=== PATIENT | male | born 1970 | race Caucasian/White ===

== ENCOUNTER 2016-11-18 20:20 | Emergency (ER) | payer MEDICAID ==
[2016-06-12 20:28] VITALS: BMI 20.9
[~2016-11-18 20:20] MED LIST: FLORINEF 0.1 M0.1 MG PO; HYDROCODON-ACE1 EAC7 PO; IMITREX50 MG PO; LUNESTA3 MG PO; NORCO 10/325 TA1 TA1 PO; PHENERGAN25 M1 PO; PREDNISONE5 MG PO; PRINIVIL20 MG PO; SYNTHROID100 MCG PO; SYNTHROID75 MCG PO; TYLENOL 8 HOUR650 MG; ZOFRAN ODT4 MG/UDTAB PO
[2016-11-18 21:15] LABS: APPEARANCE CLEAR (CLEAR); BILIRUBIN NEGATIVE (NEGATIVE); COLOR STRAW (YELLOW); GLUCOSE NEGATIVE (NEGATIVE); KETONE NEGATIVE (NEGATIVE); LEUKOCYTE ESTERASE NEGATIVE (NEGATIVE); NITRITE NEGATIVE (NEGATIVE); PROTEIN NEGATIVE (NEGATIVE); UROBILINOGEN NORMAL (NORMAL)
[2016-11-18 21:26] LABS: BASOPHILS 0.2 % (0.0-2.0); EOSINOPHILS 0.3 % (0-7); HEMATOCRIT 40.9 % (42.0-54.0); HEMOGLOBIN 14.8 g/dL (13.5-17.5); IMMATURE GRANULOCYTES 0.7 % (0-5); MCH 34.2 pg (26.0-34.0); MCHC 36.2 g/dL (31.0-37.0); MCV 94.5 fL (80.0-100.0); MEAN PLATELET VOLUME 11.1 fL (7.4-10.4); MONOCYTES 7.3 % (2-11); NEUTROPHILS 78.5 % (40-80); PLATELET COUNT 234 10x3/uL (130-400); RBC 4.33 10x6/uL (4.20-6.10); RDW 13.1 % (11.5-14.5); WBC 12.8 10x3/uL (4.8-10.8)
[2016-11-18 21:38] LABS: ALBUMIN 4.7 g/dL (3.4-5.0); ANION GAP 12.3 mmol/L (8-16); BILIRUBIN - TOTAL 0.72 mg/dL (0.2-1.3); CALCIUM 9.6 mg/dL (8.5-10.1); CARBON DIOXIDE 30.8 mmol/L (21.0-32.0); CREATININE - SERUM 1.3 mg/dL (0.6-1.3); POTASSIUM - SERUM 4.1 mmol/L (3.5-5.1); PROTEIN - SERUM 8.3 g/dL (6.4-8.2)
== END 2016-11-18 23:45 | disposition home or self-care (01) ==
LOC: D.ER 20:20
PROVIDERS: Emergency Medicine
DX: N28.9 Disorder of kidney and ureter, unspecified (principal); K21.9 Gastro-esophageal reflux disease without esophagitis; E87.6 Hypokalemia; F17.200 Nicotine dependence, unspecified, uncomplicated

== ENCOUNTER 2016-12-21 06:34 | Outpatient (CLI) | payer MEDICAID ==
[~2016-12-21] VITALS: Ht 182.9 cm; Wt 65.9 kg
--- NOTE | ~2016-12-21 | HEMODYNAMI ---
PATIENT:DILLON LOPEZ MEDICAL RECORD: [id number] : 68 LOCATION:[facility] ADMISSION DATE: 12/21/16 Generatedon:12/21/20168:04 Patient name: DILLON LOPEZ Patient #: [id number] SSN: : 1970 Date of study: 12/21/2016 Page: Of Hemodynamic Procedure Report Patient Data Patient Demographics Procedure consent was obtained First Name: DILLON Gender: Male Last Name: JESSICA : 1970 [facility] Initial: NILO Age: 46 year(s) Patient #: [id number] Race: Additional ID: [id number] Contact details Address: [address] State: [place] City: [place] Zip code: [address] Past Medical History Allergies Allergen Reaction Date Comments Reported Other allergy 12/21/2016 CLONIDINE Admission Admission Data Admission Date: 12/21/2016 Admission Time: 6:34 Lab Results Lab Result Date: 12/21/2016 Lab Result Time: 0:00 Biochemistry Name Units Result Min Max Creatinine mg/dl 1.4 --(----)*- 0.6 1.3 CBC Name Units Result Min Max Hemoglobin g/dl 14.5 --(*---)-- 13.5 17.5 Procedure Procedure Types Cath Procedure Diagnostic Procedure [facility] w/Coronaries PCI Procedure Coronary Stent Initial Miscellaneous Procedures Moderate Sedation up to 30 minutes Procedure Description Procedure Date Procedure Date: 12/21/2016 Procedure Start Time: 7:41 Procedure End Time: 8:04 Procedure Staff Name Function Tawana Cobian RT Scrub Nahed Dahl RN Nurse William Arzate RT Monitor Milan Canela RN Lab Asst Jordon Rodriguez MD Performing Physician Procedure Data Cath Procedure Fluoroscopy Diagnostic fluoroscopy Total fluoroscopy Time: 4.2 time: 4.2 min min Diagnostic fluoroscopy Total fluoroscopy dose: 506 dose: 506 mGy mGy Contrast Material Contrast Material Type Amount (ml) Isovue 300 96 Entry Location Entry Primary Successful Side Size Upsize Upsize Entry Closure [place] ccessful Closure Location (Fr) 1 (Fr) 2 (Fr) Remarks Device Remarks Radial Right 6 Fr Mechanical artery Short Compression Estimated blood loss: 10 ml Diagnostic catheters Device Type Used For End Catheter Placement Cordis RBL-A catheter (NO LV Angiography CHARGE) Cordis RBL-A catheter (NO Left Coronary CHARGE) Angiography Cordis RBL-A catheter (NO Right Coronary CHARGE) Angiography Procedure Complications No complications Procedure Medications Medication Administration Route Dosage Oxygen NC 2 l/min Lidocaine 2% added to field 20 Heparin Flush Bag added to field 2 bags (1000units/500ml NS) 0.9% NaCl I.V. 100 ml/hr Versed I.V. 2 mg Fentanyl I.V. 100 mcg Versed I.V. 2 mg Fentanyl I.V. 100 mcg Radial Cocktail I.A. 1 syringe (Verapomil 2mg/Nitro 400mcg/Heparin 1500units) Versed I.V. 2 mg Fentanyl I.V. 100 mcg Versed I.V. 1 mg Fentanyl I.V. 50 mcg Heparin Bolus I.V. 6500 units Plavix P.O. 600 mg Hemodynamics Rest Heart Rate: 55 (bpm) Pressure Samples Time Site Value (mmHg) Purpose Heart Use Rate(bpm) 7:44 LV 116/1,11 EDP 59 7:45 AO 90/58(71) Pullback 65 7:45 LV 115/-2,6 Pullback 65 Gradients Valve Time Site 1 Site 2 Mean SEP/DFP Peak To Heart Use (mmHg) (sec/min) Peak Rate (mmHg) (bpm) Aortic 7:45 LV AO 16 19 25 65 115/-2,6 90/58(71) Calculations Valve P-P Mean Valve Index Valve Source Name Gradient Area Flow (cm2) Aortic 25 16 25 16 Snapshots Pre Cath Intra NCS Post Cath Vital Signs Time Heart Resp SPO2 etCO2 QC9oncb NIBP (mmHg) Rhythm Pain Sedation Rate (ipm) (%) (mmHg) (mmHg) Status Level (bpm) 7:29:57 61 17 98 0 0 160/103(147) NSR 0 (11) 10(A) , No pain 7:34:26 60 18 97 0 0 137/64(115) NSR 0 (11) 10(A) , No pain 7:38:33 56 17 95 0 0 141/95(107) NSR 0 (11) 10(A) , No pain 7:42:43 58 16 96 0 0 135/102(121) NSR 0 (11) 10(A) , No pain 7:46:57 63 18 95 0 0 123/74(111) NSR 0 (11) 9(A) , No pain 7:51:05 71 16 95 0 0 114/76(106) NSR 0 (11) 9(A) , No pain 7:55:07 71 16 94 0 0 129/86(114) NSR 0 (11) 9(A) , No pain 7:59:15 68 18 94 0 0 128/82(118) NSR 0 (11) 10(A) , No pain 8:03:25 72 17 95 0 0 124/77(110) NSR 0 (11) 10(A) , No pain Medications Time Medication Route Dose Verified Delivered Reason Notes Effectiveness by by 7:28:13 Oxygen NC 2 l/min Jordon Buffie used for Michael Dahl RN procedure 7:28:21 Lidocaine 2% added 20ml Jordon Jordon for local to vial Michael Rodriguez MD anesthetic field 7:28:29 Heparin Flush added 2 bags Jordon Jordon used for Bag to Michael Rodriguez MD procedure (1000units/500ml field NS) 7:28:37 0.9% NaCl I.V. 100 Jordon Buffie Per physician ml/hr Michael Dahl RN 7:35:35 Versed I.V. 2 mg Buffie Buffie for sedation Nabila Dahl RN 7:35:41 Fentanyl I.V. 100 mcg Buffie Buffie for sedation Nabila Dahl RN 7:40:27 Versed I.V. 2 mg Jordon Buffie for sedation Michael Dahl RN 7:40:31 Fentanyl I.V. 100 mcg Jordon Buffie for sedation Michael Dahl RN 7:43:58 Radial Cocktail I.A. 1 Jordon Jordon for (Verapomil syringe Michael Rodriguez MD vasodilation 2mg/Nitro 400mcg/Heparin 1500units) 7:45:18 Versed I.V. 2 mg Jordon Buffie for sedation Michael Dahl RN 7:45:22 Fentanyl I.V. 100 mcg Jordon Buffie for sedation Michael Dahl RN 7:50:29 Versed I.V. 1 mg Jordon Nahed for sedation Michael Dahl RN 7:50:34 Fentanyl I.V. 50 mcg Jordon Dockery for sedation Michael Dahl RN 7:52:05 Heparin Bolus I.V. 6500 Jordon Dockery for verif ied units Michael Dahl RN anticoagulation with dr rodriguez 8:02:36 Plavix P.O. 600 mg Jordonlarry Dockery for Michael Dahl RN antiplatelet therapy Procedure Log Time Note 7:08:28 Milan Canela RN sent for patient. Start room use. 7:08:30 Time tracking: Regular hours 7:08:36 Plan of Care:Hemodynamics will remain stable., Cardiac rhythm will remain stable., Comfort level will be maintained., Respiratory function will remain adequate., Patient/ family verbilizes understanding of procedure., Procedure tolerated without complication., Recovers from procedure without complications.. 7:09:17 Diagnostic Cath status Elective 7:17:30 Patient received from Pre/Post Procedure Room to [facility] Alert and oriented. Tansferred to table in Supine position. 7:17:31 Warm blankets applied, and abdoulaye hugger turned on for patient comfort. 7:17:32 Correct patient and procedure confirmed by team. 7:17:34 Signed procedure consent form obtained from patient. 7:17:35 ECG and BP/O2 sat monitors applied to patient. 7:17:37 Full Disclosure recording started 7:28:13 Oxygen 2 l/min NC was administered by Nahed Dahl RN; used for procedure; 7:28:21 Lidocaine 2% 20ml vial added to field was administered by Jordon Rodriguez MD; for local anesthetic; 7:28:29 Heparin Flush Bag (1000units/500ml NS) 2 bags added to field was administered by Jordon Rodriguez MD; used for procedure; 7:28:37 0.9% NaCl 100 ml/hr I.V. was administered by Nahed Dahl RN; Per physician; 7:28:46 Vital chart was started 7:28:53 Rhythm: sinus rhythm 7:31:08 H&P Date Dictated: 12/16/2016 Within 30 days and on chart., H&P Addendum completed by physician on day of procedure. (MUST COMPLETE FOR ALL OUTPATIENTS). 7:31:26 Pre-procedure instructions explained to patient. 7:31:26 Pre-op teaching completed and patient verbalized understanding. 7:31:31 Family in waiting room. 7:31:32 Patient NPO since Midnight. 7:31:56 Patient allergic to Other allergyCLONIDINE 7:32:00 Is the patient allergic to Iodine/contrast media? No. 7:32:02 Is patient on blood thinner?No 7:32:09 Patient diabetic? No. 7:32:12 Previous problem with sedation/anesthesia? No ? 7:32:14 Snore? Yes 7:32:15 Sleep apnea? No 7:32:16 Deviated septum? No 7:32:17 Opens mouth fully? Yes 7:32:22 Sticks out tongue? Yes 7:32:23 Airway obstruction? No ? 7:32:25 Dentures? No ? 7:32:28 Pre procedure: right dorsailis pedis pulse 2+ Normal; easily identifiable; not easily obliterated 7:32:30 Modified Nakul's test Ulnar < 7 seconds 7:32:32 Patient pain scale 0/10 ?. 7:32:38 IV patent on arrival in left hand with 0.9% NaCl at O. 7:33:37 Lab Result : Creatinine 1.4 mg/dl 7:33:37 Lab Result : Hemoglobin 14.5 g/dl 7:33:40 Lab results completed and on chart. 7:33:44 Right Radial & Right Groin area was prepped with chlora-prep and draped in sterile fashion 7:33:45 Alarms reviewed by R. N. 7:33:46 Sharps counted by scrub and verified by R.N. 7:33:48 Final Timeout: patient, procedure, and site verified with staff and physician. All members of the team are in agreement. 7:33:51 Right Radial site verified by team. 7:33:55 Physical assessment completed. ASA score P 2 - A patient with mild systemic disease as per Jordon Rodriguez MD. 7:33:59 Sedation plan: IV Moderate Sedation Versed, Fentanyl 7:34:04 Use device set Radial Dx 7:34:05 Acist Syringe opened to sterile field. 7:34:05 Medline Cath Pack opened to sterile field. 7:34:06 Bag Decanter opened to sterile field. 7:34:06 Terumo 6Fr Slender Glidesheath opened to sterile field. 7:34:06 St Shankar 260cm J .035 wire opened to sterile field. 7:34:07 Acist Hand Control opened to sterile field. 7:34:07 Acist Manifold opened to sterile field. 7:34:15 Cook 21G 4cm Radial Needle opened to sterile field. 7:35:35 Versed 2 mg I.V. was administered by Nahed Dahl RN; for sedation; 7:35:41 Fentanyl 100 mcg I.V. was administered by Nahed Dahl RN; for sedation; 7:38:50 Baseline sample Acquired. 7:39:37 Zero performed for pressure channel P1 7:39:41 Zero performed for pressure channel P1 7:39:45 Zero performed for pressure channel P1 7:40:27 Versed 2 mg I.V. was administered by Nahed Dahl RN; for sedation; 7:40:31 Fentanyl 100 mcg I.V. was administered by Nahed Dahl RN; for sedation; 7:41:11 Procedure started. 7:41:16 Local anesthetic to right radial artery with Lidocaine 2% by Jordon Rodriguez MD.INITIAL ACCESS ONLY 7:42:50 A 6 Fr Short sheath was inserted into the Right Radial artery 7:43:58 Radial Cocktail (Verapomil 2mg/Nitro 400mcg/Heparin 1500units) 1 syringe I.A. was administered by Jordon Rodriguez MD; for vasodilation; 7:44:15 A Cordis RBL-A catheter (NO CHARGE) was advanced over the wire and used for LV Angiography. 7:44:42 LV gram done using RIVERA 7:44:44 LV hemodynamics recorded. 7:44:47 Injector settings: Ml/sec: 5, Volume: 15, 7:44:58 EF : 60 % 7:45:18 Versed 2 mg I.V. was administered by Nahed Dahl RN; for sedation; 7:45:22 Fentanyl 100 mcg I.V. was administered by Nahed Dahl RN; for sedation; 7:46:19 A Cordis RBL-A catheter (NO CHARGE) was advanced over the wire and used for Left Coronary Angiography. 7:47:35 A Cordis RBL-A catheter (NO CHARGE) was advanced over the wire and used for Right Coronary Angiography. 7:47:49 Catheter removed. 7:48:19 High Pressure Extension Tubing (Michael) opened to sterile field. 7:48:19 Cordis 6FR XBLAD 3.5 guide catheter opened to sterile field. 7:48:20 Deluca BMW [place] 2 J-tip 300cm 0.014 guide wir opened to sterile field. 7:48:21 Virtual View App BasixCompak Inflation Kit opened to sterile field. 7:49:58 6 Fr XBLAD 3.5 guide catheter was inserted over the wire 7:50:29 Versed 1 mg I.V. was administered by Nahed Dahl RN; for sedation; 7:50:34 Fentanyl 50 mcg I.V. was administered by Nahed Dahl RN; for sedation; 7:52:05 Heparin Bolus 6500 units I.V. was administered by Nahed Dahl RN; for anticoagulation; verified with dr rodriguez 7:53:31 ANT wire advanced. 7:58:21 Inflation Number: 1 A Knozentronic Integrity 3.0 X 18 stent was prepped and advanced across the Prox LAD. The stent was deployed at 15 MARIE for 0:26 (min:sec). 7:58:55 Terumo TR Band Standard opened to sterile field. 7:59:05 Stent catheter was removed intact over wire. 7:59:06 Wire removed. 7:59:06 Guide catheter removed. 7:59:20 Sheath removed intact; hemostasis achieved with Mechanical Compression to the Right Radial artery. 7:59:24 Procedure ended.(Physican Out) 7:59:38 Fluoroscopy time 04.20 minutes. 7:59:44 Fluoroscopy dose: 506 mGy 7:59:44 Flurop Dose total: 506 7:59:47 Contrast amount:Isovue 300 96ml. 7:59:49 Sharps counted by scrub and verified by R.N. 7:59:52 TR band inflated with 14cc of air. 7:59:54 Insertion/operative site no bleeding no hematoma. 8:00:03 Post right radial artery:stable, clean and dry 8:00:04 Post Procedure Pulses reassessed and unchanged 8:00:15 Post-procedure physical assessment completed. ASA score P 2 - A patient with mild systemic disease as per Jordon Rodriguez MD. 8:00:17 Post procedure rhythm: unchanged. 8:00:20 Estimated blood loss: 10 ml 8:00:22 Post procedure instruction explained to patient.Patient verbalizes understanding. 8:00:23 Patient needs reinforcement of post procedure teaching. 8:00:35 Procedure type changed to Cath procedure, Diagnostic procedure, LHC, LHC w/Coronaries, PCI procedure, Coronary Stent Initial, Miscellaneous Procedures, Moderate Sedation up to 30 minutes 8:00:41 Procedure Complication : No complications 8:00:44 See physician's report for complete and final results. 8:00:59 Procedure and supply charges have been captured, reviewed, submitted and are correct. 8:02:36 Plavix 600 mg P.O. was administered by Nahed Dahl RN; for antiplatelet therapy; 8:04:11 Vital chart was stopped 8:04:15 Report given to Pre/Post Procedure Room. 8:04:21 Patient transfered to Pre/Post Procedure Room with Stretcher. 8:04:24 Procedure ended. 8:04:24 Full Disclosure recording stopped 8:04:35 End room use (Document Last) Intervention Summary Intervention Notes Time ActionType Lesion and Equipment Action# Pressure Duration Attributes Used 7:58:21 Place stent Prox LAD Medtronic 1 15 00:26 Integrity 3.0 X 18 stent Device Usage Item Name Manufacture Quantity Catalog Hospital Part Current Minimal Lot# / Number Charge Number Stock Stock Serial# Code Acist Acist 1 [id number] 334107 068456 20 Syringe Medical Systems Inc Medline Cardinal 1 [id number] 204303 43255 352998 5 Cath Pack Health Bag Microtek 1 2001S [id number] 20885 594143 5 Decanter Medical Inc. Terumo 6Fr Terumo 1 [id number] 429718 619931 108446 [address] St Shankar 1 [id number] 830232 757103 126761 30 260cm J .035 wire Acist Hand Acist 1 80830 634524 041214 907798 5 Control Medical Systems Inc Acist Acist 1 30429 077580 238577 857562 5 Manifold Medical Systems Inc Cook 21G Cook Medical 1 [id number] 945848 820625 348188 5 4cm Radial Needle Cordis Cardinal 1 [id number] 523945 448537 5 RBL-A Health catheter (NO CHARGE) High Merit 1 [id number] 274560 64102 398922 10 Pressure Medical Extension Tubing (Rodriguez) Cordis 6FR Cardinal 1 [id number] 801013 172911 247600 10 XBLAD 3.5 Health guide catheter Deluca BMW Deluca 1 [id number] 703082 308748 154802 5 [place] 2 Vascular J-tip 300cm 0.014 guide wir Merit Merit 1 [id number] 911492 546736 537592 15 Lightspeed Audio [facility] Medical Inflation Kit Medtronic Medtronic 1 [id number] 732396 535236 386988 7 [id number] Integrity 3.0 X 18 stent Terumo TR Terumo 1 [id number] 084151 251911 090069 40 Band Standard Signature Audit [place] Stage Time Signature Unsigned Intra-Procedure 12/21/2016 [place] 8:04:48 AM Counts RT(R) Signatures Monitor : William Arzate RT Signature : Date : Time : [address] [address]
[2016-12-21] MEDS ORDERED: NATURE-THROID32.4 MG PO (06:47)
[2016-12-21] MEDS ORDERED: CYMBALTA20 MG PO (06:49)
[2016-12-21 06:51] VITALS: BP 160/106; Ht 182.9 cm; Wt 65.9 kg
[2016-12-21] MEDS ORDERED: ATIVAN1 MG PO (07:03)
[2016-12-21 07:12] LABS: BASOPHILS 0.2 % (0.0-2.0); EOSINOPHILS 0.7 % (0-7); HEMATOCRIT 40.4 % (42.0-54.0); HEMOGLOBIN 14.5 g/dL (13.5-17.5); IMMATURE GRANULOCYTES 0.9 % (0-5); LYMPHOCYTES 28.8 % (15-50); MCH 34.3 pg (26.0-34.0); MCHC 35.9 g/dL (31.0-37.0); MCV 95.5 fL (80.0-100.0); MEAN PLATELET VOLUME 11.1 fL (7.4-10.4); MONOCYTES 7.6 % (2-11); NEUTROPHILS 61.8 % (40-80); PLATELET COUNT 216 10x3/uL (130-400); RBC 4.23 10x6/uL (4.20-6.10); RDW 14.2 % (11.5-14.5); WBC 13.8 10x3/uL (4.8-10.8)
[2016-12-21 07:20] LABS: ANION GAP 13.2 mmol/L (8-16); CALCIUM 9.3 mg/dL (8.5-10.1); CREATININE - SERUM 1.4 mg/dL (0.6-1.3); POTASSIUM - SERUM 4.2 mmol/L (3.5-5.1)
[2016-12-21] MEDS ORDERED: PLAVIX75 MG PO (08:24)
--- NOTE | 2016-12-21 08:35 | NUR ---
SITTING UP IN BED, VSS. NO C/O CHEST PAIN OR NAUSEA. RIGHT WRIST DRSG CDI, NO BLEEDING OR HEMATOMA NOTED. WILL CONTINUE TO MONITOR.
--- NOTE | 2016-12-21 09:05 | NUR ---
IN BED WITH EYES CLOSED. FAMILY AT BEDSIDE. NO C/O CHEST PAIN OR NAUSEA. VITAL SIGNS STABLE. ROOM AIR, NO RESP DISTRESS NOTED. RIGHT WRIST DRSG CDI, NO BLEEDING OR HEMATOMA NOTED.
--- NOTE | 2016-12-21 09:20 | NUR ---
RESTING QUIETLY. VSS. NO C/O AT THIS TIME. SIDE RAILS UP X2, CALL LIGHT WITHIN REACH.
--- NOTE | 2016-12-21 09:50 | NUR ---
IN BED WITH EYES CLOSED. VITAL SIGNS STABLE. NO C/O AT THIS TIME. FAMILY AT BEDSIDE, CALL LIGHT WITHIN REACH.
--- NOTE | 2016-12-21 10:20 | NUR ---
RESTING QUIETLY. VSS. RIGHT WRIST DRSG CDI, NO BLEEDING NOTED. NO C/O CHEST PAIN OR NAUSEA. WILL CONTINUE TO MONITOR.
--- NOTE | 2016-12-21 11:12 | NUR ---
HOB ELEVATED 45 DEGREES. SANDWICH TRAY GIVEN. NO C/O NAUSEA.
--- NOTE | 2016-12-21 11:28 | NUR ---
VOIDED 850CC OF CLEAR YELLOW URINE. 2CC OF AIR REMOVED FROM TR BAND. NO BLEEDING NOTED.
--- NOTE | 2016-12-21 11:36 | NUR ---
4CC OF AIR REMOVED FROM TR BAND. NO BLEEDING NOTED.
--- NOTE | 2016-12-21 11:50 | NUR ---
4CC OF AIR REMOVED FROM TR BAND, NO BLEEDING NOTED. LEFT FA PIV D/C'D WITH CATHETER INTACT. UP TO GET DRESSED.
--- NOTE | 2016-12-21 12:00 | NUR ---
REMAINING AIR REMOVED FROM TR BAND. NO BLEEDING NOTED.
--- NOTE | 2016-12-21 12:20 | NUR ---
DISCHARGE INSTRUCTIONS GIVEN, VERBALIZED UNDERSTANDING. DRESSING PLACED TO RIGHT WRIST.
--- NOTE | 2016-12-21 12:30 | NUR ---
TAKEN OUT VIA WHEELCHAIR BY CATH PATIENT PLACEMENT COORDINATOR. LEFT FACILITY WITH FAMILY MEMBER AND ALL PERSONAL BELONGINGS.
--- NOTE | 2016-12-31 14:54 | OP ---
PATIENT NAME: DLILON LOPEZ MEDICAL RECORD: [id number] :68 LOCATION:D.[facility] ADMISSION DATE: SURGEON: FRANKLYN CHAND M.D. DATE OF OPERATION: 12/21/2016 REFERRING PHYSICIAN: Rian Gu MD. PROCEDURES PERFORMED: 1. Selective coronary angiography. 2. Left heart catheterization with ventriculogram. 3. PTCA and stent placed in LAD. INDICATION: A 46-year-old gentleman, who presents with symptoms of accelerating angina. EQUIPMENT USED: A 5-Gabonese Arun catheter. INTERVENTION: A 6-Gabonese XB LAD guide, BMW guidewire, 3.0 x 18 mm Integrity stent. TECHNIQUE: A 6-Gabonese sheath was inserted in retrograde fashion in the right radial artery. Next, selective coronary angiography was performed in standard views using 5-Gabonese Arun catheter. Left heart catheterization was performed using the Arun catheter as well. CORONARY ANATOMY: 1. Left main: Left main trunk is moderate in caliber. It gives rise to the LAD and circumflex. There is no obstruction. 2. LAD: This is a large caliber vessel extending to the apex. The proximal vessel has an ulcerated 90% stenosis. 3. Circumflex: This vessel is moderate in caliber. It has mild irregularities throughout its course, but nothing worse than 20%. 4. Right coronary: This vessel is large in caliber and dominant. The mid vessel has a smooth 30% stenosis. PDA and posterolateral branch are of good size and have no obstruction. 5. Left ventricle: Left ventricle is normal in size and function. No wall motion abnormalities are noted. Its ejection fraction is 60%. DESCRIPTION OF INTERVENTION: A 100 units per kilogram of heparin was infused. A 6-Gabonese XB LAD guide was advanced and engaged in the left main coronary artery. Next, a BMW guide wire was placed in the distal LAD. A 3.0 x 18 mm Integrity stent was placed across the stenosis and deployed at 15 atmospheres. Injection shows stent to be widely patent with 0% residual stenosis. There is marked improvement in distal flow. At this point, the wire and guide were removed. IMPRESSION: Successful percutaneous transluminal coronary angioplasty and stent in the left anterior descending with 0% residual stenosis. TRANSINT:[id number] Voice Confirmation ID: [id number] DOCUMENT ID: [id number] OPERATIVE REPORT [id number] DILLON LOPEZ,FRANKLYN Mejia M.D. at 1454 CC: [id number] DICTATION DATE: 12/21/16 0806 POWER HAIR CLIPPER: 12/21/16 1014 DEP CLI 12/21/16 [place] [id number] [place] [id number]
== END 2016-12-21 12:30 | disposition home or self-care (01) ==
LOC: D.CATH 06:34
PROVIDERS: Internal Medicine Cardiovascular Disease
DX: I25.110 Atherosclerotic heart disease of native coronary artery with unstable angina pectoris (principal)

== ENCOUNTER 2016-12-23 00:15 | Emergency (ER) | payer MEDICAID ==
[2016-12-21 06:51] VITALS: BMI 19.7
[~2016-12-23 00:15] MED LIST changes: +ATIVAN1 MG PO; +CYMBALTA20 MG PO; +NATURE-THROID32.4 MG PO; +PLAVIX75 MG PO
[2016-12-23 01:44] LABS: ALBUMIN 4.1 g/dL (3.4-5.0); ALKALINE PHOSPHATASE 72 U/L (46-116); ALT (SGPT) 83 U/L (10-68); BILIRUBIN - TOTAL 0.53 mg/dL (0.2-1.3); CALC OSMOLALITY 265 mosm/kg (275-300); CALCIUM 9.2 mg/dL (8.5-10.1); CARBON DIOXIDE 31.1 mmol/L (21.0-32.0); CHLORIDE - SERUM 94 mmol/L (98-107); CREATININE - SERUM 1.2 mg/dL (0.6-1.3); GLUCOSE 91 mg/dL (74-106); POTASSIUM - SERUM 3.9 mmol/L (3.5-5.1); PROTEIN - SERUM 7.2 g/dL (6.4-8.2); SODIUM 134 mmol/L (136-145); UREA NITROGEN 7 mg/dL (7-18); eGFR NON AFRICAN AMERICAN 69 mL/min (90-120)
[2016-12-23 02:00] LABS: BASOPHILS 0.2 % (0.0-2.0); CKMB 1.5 U/L (0.0-3.6); CREATINE KINASE 98 UL (21-232); EOSINOPHILS 0.5 % (0-7); HEMATOCRIT 36.5 % (42.0-54.0); IMMATURE GRANULOCYTES 0.7 % (0-5); LYMPHOCYTES 17.8 % (15-50); MCH 33.7 pg (26.0-34.0); MCHC 35.6 g/dL (31.0-37.0); MCV 94.6 fL (80.0-100.0); MEAN PLATELET VOLUME 11.2 fL (7.4-10.4); MONOCYTES 7.6 % (2-11); NEUTROPHILS 73.2 % (40-80); PLATELET COUNT 205 10x3/uL (130-400); RBC 3.86 10x6/uL (4.20-6.10); WBC 11.9 10x3/uL (4.8-10.8)
[2016-12-23 02:02] LABS: TROPONIN-I 0.451 ng/mL (0.000-0.060)
[2016-12-23 02:27] LABS: UDS - AMPHET NEGATIVE QUAL (NEGATIVE); UDS - BARB NEGATIVE QUAL (NEGATIVE); UDS - BENZO NEGATIVE QUAL (NEGATIVE); UDS - COCAINE NEGATIVE QUAL (NEGATIVE); UDS - METH NEGATIVE QUAL (NEGATIVE); UDS - OPIATE POSITIVE QUAL (NEGATIVE); UDS - PCP NEGATIVE QUAL (NEGATIVE); UDS - THC NEGATIVE QUAL (NEGATIVE)
== END 2016-12-23 06:45 | disposition home or self-care (01) ==
LOC: D.ER 00:15
PROVIDERS: Family Medicine
DX: R07.9 Chest pain, unspecified (principal); K21.9 Gastro-esophageal reflux disease without esophagitis; E87.6 Hypokalemia

== ENCOUNTER 2017-04-12 19:55 | Emergency (ER) | payer MEDICAID ==
[2016-12-21 06:51] VITALS: BMI 19.7
[2017-04-12 20:35] LABS: BASOPHILS 0.2 % (0-2); EOSINOPHILS 0.2 % (0-7); HEMATOCRIT 44.2 % (42.0-54.0); HEMOGLOBIN 15.6 g/dL (13.5-17.5); IMMATURE GRANULOCYTES 1.4 % (0-5); LYMPHOCYTES 10.5 % (15-50); MCHC 35.3 g/dL (31.0-37.0); MCV 99.1 fL (80.0-100.0); MEAN PLATELET VOLUME 11.3 fL (7.4-10.4); NEUTROPHILS 82.7 % (40-80); PLATELET COUNT 233 10x3/uL (130-400); RBC 4.46 10x6/uL (4.20-6.10); RDW 13.2 % (11.5-14.5); WBC 13.1 10x3/uL (4.8-10.8)
[2017-04-12 20:52] LABS: ALBUMIN 4.6 g/dL (3.4-5.0); ALKALINE PHOSPHATASE 111 U/L (46-116); ALT (SGPT) 59 U/L (10-68); BILIRUBIN - TOTAL 0.62 mg/dL (0.2-1.3); CALC OSMOLALITY 265 mosm/kg (275-300); CARBON DIOXIDE 27.5 mmol/L (21.0-32.0); CHLORIDE - SERUM 93 mmol/L (98-107); CREATININE - SERUM 1.3 mg/dL (0.6-1.3); POTASSIUM - SERUM 5.1 mmol/L (3.5-5.1); PROTEIN - SERUM 8.2 g/dL (6.4-8.2); SODIUM 132 mmol/L (136-145); UREA NITROGEN 7 mg/dL (7-18); eGFR NON AFRICAN AMERICAN 62 mL/min (90-120)
[2017-04-12 20:53] LABS: GLUCOSE 159 mg/dL (74-106)
[2017-04-12 21:04] LABS: CKMB 1.1 U/L (0.0-3.6); CREATINE KINASE 152 UL (21-232); PRO BNP 262 pg/mL (0-125); TROPONIN-I < 0.017 ng/mL (0.000-0.060)
[2017-04-12 22:15] LABS: APPEARANCE CLEAR (CLEAR); BILIRUBIN NEGATIVE (NEGATIVE); COLOR YELLOW (YELLOW); GLUCOSE NEGATIVE (NEGATIVE); KETONE NEGATIVE (NEGATIVE); LEUKOCYTE ESTERASE NEGATIVE (NEGATIVE); NITRITE NEGATIVE (NEGATIVE); PROTEIN NEGATIVE (NEGATIVE); UROBILINOGEN NORMAL (NORMAL)
[2017-04-12 22:19] LABS: UDS - AMPHET NEGATIVE QUAL (NEGATIVE); UDS - BARB NEGATIVE QUAL (NEGATIVE); UDS - BENZO NEGATIVE QUAL (NEGATIVE); UDS - COCAINE NEGATIVE QUAL (NEGATIVE); UDS - METH NEGATIVE QUAL (NEGATIVE); UDS - OPIATE POSITIVE QUAL (NEGATIVE); UDS - PCP NEGATIVE QUAL (NEGATIVE); UDS - THC NEGATIVE QUAL (NEGATIVE)
== END 2017-04-12 23:51 | disposition left against medical advice (07) ==
LOC: OBSVTIME → D.ER 19:55 → OBSVTIME 22:47 → D.M2 22:47 → D.ER 23:51
PROVIDERS: Emergency Medicine; Nurse Practitioner Family
DX: I25.10 Atherosclerotic heart disease of native coronary artery without angina pectoris (principal); R07.9 Chest pain, unspecified; F17.200 Nicotine dependence, unspecified, uncomplicated; I10 Essential (primary) hypertension

== ENCOUNTER 2017-04-13 00:40 | Observation (INO) | payer MEDICAID ==
[~2017-04-13] VITALS: Ht 182.9 cm; Wt 63.6 kg
--- NOTE | ~2017-04-13 | HEMODYNAMI ---
PATIENT:DILLON LOPEZ MEDICAL RECORD: [id number] : 68 LOCATION:[facility].[address] [place], [place] [address]T# [id number] ADMISSION DATE: 04/13/17 Generatedon:04/13/201715:32 Patient name: DILLON LOPEZ Patient #: [id number] SSN: : 1970 Date of study: 04/13/2017 Page: Of Hemodynamic Procedure Report Patient Data Patient Demographics Procedure consent was obtained First Name: DILLON Gender: Male Last Name: JESSICA : 1970 Middle Initial: NILO Age: 47 year(s) Patient #: [id number] Race: Additional ID: [id number] Contact details Address: [address] State: [place] City: [place] Zip code: [address] Past Medical History Allergies Allergen Reaction Date Comments Reported Other allergy 12/21/2016 CLONIDINE Admission Admission Data Admission Date: 04/13/2017 Admission Time: 1:29 Room #: [facility] Height (in.): 72 BSA: 1.87 (m2) Height (cm.): 182.88 BMI: 20.03 (kg/m2) Weight (lbs.): 147.71 Weight (kg.): 67 Lab Results Lab Result Date: 04/13/2017 Lab Result Time: 0:00 Biochemistry Name Units Result Min Max BUN mg/dl 7 --(*---)-- 7 18 Creatinine mg/dl 1.3 --(---*)-- 0.6 1.3 CBC Name Units Result Min Max Hemoglobin g/dl 15.6 --(--*-)-- 13.5 17.5 Procedure Procedure Types Cath Procedure Diagnostic Procedure C LH w/Coronaries Miscellaneous Procedures Moderate Sedation up to 15 minutes Procedure Description Procedure Date Procedure Date: 04/13/2017 Procedure Start Time: 15:20 Procedure End Time: 15:31 Procedure Staff Name Function Marvel Fowler MD Performing Physician Juna Chambers RT Scrub Kylie Spencer RN Nurse Milan Canela RN Financial Aid Advisor Alton Bertrand RT Monitor Procedure Data Cath Procedure Fluoroscopy Diagnostic fluoroscopy Total fluoroscopy Time: 1.9 time: 1.9 min min Diagnostic fluoroscopy Total fluoroscopy dose: 285 dose: 285 mGy mGy Contrast Material Contrast Material Type Amount (ml) Isovue 300 61 Entry Location Entry Primary Successful Side Size Upsize Upsize Entry Closure [place] ccessful Closure Location (Fr) 1 (Fr) 2 (Fr) Remarks Device Remarks Femoral Right 6 Fr Mechanical artery Short Compression Estimated blood loss: 10 ml Diagnostic catheters Device Type Used For End Catheter Placement Terumo 5Fr Arun 110cm Procedure catheter Procedure Complications No complications Procedure Medications Medication Administration Route Dosage Zofran I.V. 4 mg Oxygen NC 2 l/min Heparin Flush Bag added to field 2 bags (1000units/500ml NS) Lidocaine 2% added to field 20 Radial Cocktail added to field 1 syringe (Verapomil 2mg/Nitro 400mcg/Heparin 1500units) Versed I.V. 1 mg Fentanyl I.V. 50 mcg Radial Cocktail I.A. 1 syringe (Verapomil 2mg/Nitro 400mcg/Heparin 1500units) Versed I.V. 1 mg Fentanyl I.V. 50 mcg Fentanyl I.V. 50 mcg Versed I.V. 1 mg Fentanyl I.V. 50 mcg Versed I.V. 1 mg Fentanyl I.V. 50 mcg Versed I.V. 1 mg Fentanyl I.V. 50 mcg Versed I.V. 1 mg Hemodynamics Rest BSA: 1.87 (m2) HGB: 15.6 (g/dl) O2 Consumption: Estimated: 215.91 (ml/min) O2 Co nsumption indexed: Estimated:115.46 (ml/min/m) Heart Rate: 58 (bpm) Pressure Samples Time Site Value (mmHg) Purpose Heart Use Rate(bpm) 15:25 LV 117/-12,-8 Snapshot 91 15:25 AO 101/75(89) Pullback 67 15:25 LV 103/-3,-3 Pullback 67 Gradients Valve Time Site 1 Site 2 Mean SEP/DFP Peak To Heart Use (mmHg) (sec/min) Peak Rate (mmHg) (bpm) Aortic 15:25 LV AO 2 67 103/-3,-3 101/75(89) Calculations Valve P-P Mean Valve Index Valve Source Name Gradient Area Flow (cm2) Aortic 2 2 Snapshots Pre Cath Intra NCS Post Cath Vital Signs Time Heart Resp SPO2 NIBP (mmHg) Rhythm Pain Sedation Rate (ipm) (%) Status Level (bpm) 15:07:26 57 16 99 183/117(168) NSR 0 (11) 10(A) , No pain 15:11:46 56 15 100 189/111(173) NSR 0 (11) 10(A) , No pain 15:16:12 63 17 99 163/107(146) NSR 0 (11) 10(A) , No pain 15:21:12 59 16 97 Measuring NSR 0 (11) 10(A) , No pain 15:22:35 62 19 99 Time NSR 0 (11) 10(A) Exceeded , No pain 15:25:54 69 15 96 127/82(107) NSR 0 (11) 10(A) , No pain 15:30:02 67 17 96 121/71(90) NSR 0 (11) 10(A) , No pain Medications Time Medication Route Dose Verified Delivered Reason Notes Effectiveness by by 15:07:15 Zofran I.V. 4 mg Marvel Kylie Per [facility] Dereck foster MD 15:09:48 Oxygen NC 2 l/min Marvel Kylie Per [facility] Dereck Spencer RN physician 15:09:57 Heparin Flush added 2 bags Marvel Marvel used for Bag to [place] [facility] Jan[facility] procedure (1000units/500ml field MD PEDERSON NS) 15:10:03 Lidocaine 2% added 20ml Marvel Marvel used for to vial [facility] Jan[facility] procedure field MD PEDERSON 15:10:11 Radial Cocktail added 1 Marvel Marvel used for (Verapomil to syringe Jan[facility] Janeth procedure 2mg/Nitro field MD PEDERSON 400mcg/Heparin 1500units) 15:16:42 Versed I.V. 1 mg Marvel Kylie for sedation [facility] Dereck Spencer RN, MD 15:16:48 Fentanyl I.V. 50 mcg Marvel Kylie for sedation [facility] Dereck Spencer RN, MD 15:18:45 Fentanyl I.V. 50 mcg Marvel Kylie for sedation [facility] Dereck Spencer RN, MD 15:18:47 Versed I.V. 1 mg Marvel Kylie for sedation [facility] Dereck Spencer RN, MD 15:20:37 Fentanyl I.V. 50 mcg Marvel Kylie for sedation [facility] Dereck Spencre RN, MD 15:20:45 Versed I.V. 1 mg Marvel Kylie for sedation [facility] Dereck Spencer RN, MD 15:22:36 Fentanyl I.V. 50 mcg Marvel Kylie for sedation [facility] Dereck Spencer RN, MD 15:22:43 Versed I.V. 1 mg Marvel Kylie for sedation [facility] Dereck Spencer RN, MD 15:23:37 Radial Cocktail I.A. 1 Marvel Marvel for (Verapomil syringe JanethVel Fowler vasodilation 2mg/Nitro MD PEDERSON 400mcg/Heparin 1500units) 15:24:51 Fentanyl I.V. 50 mcg Marvel Kylie for sedation [facility] Dereck Spencer RN, MD 15:24:56 Versed I.V. 1 mg Marvel Kylie for sedation [facility] Dereck Spencer RN, MD 15:26:39 Fentanyl I.V. 50 mcg Marvel Kylie for sedation [facility]. Dereck Spencer RN, MD 15:26:45 Versed I.V. 1 mg Marvel Kylie for sedation [facility]. Dereck Spencer RN, MD Procedure Log Time Note 14:30:55 Milan Canela RN sent for patient. Start room use. 14:46:51 ACC Patient presents with Unstable Angina CCS Anginal Class 3--Marked limitation of physical activity, angina occurs with ordinary activity.. 14:46:53 Diagnostic Cath status Urgent 14:47:19 Time tracking: Regular hours 14:47:24 Plan of Care:Hemodynamics will remain stable., Cardiac rhythm will remain stable., Comfort level will be maintained., Respiratory function will remain adequate., Patient/ family verbilizes understanding of procedure., Procedure tolerated without complication., Recovers from procedure without complications.. 14:49:26 Lab Result : BUN 7 mg/dl 14:49:26 Lab Result : Creatinine 1.3 mg/dl 14:49:26 Lab Result : Hemoglobin 15.6 g/dl 14:54:45 H&P Date Dictated: 04/13/2017 Within 30 days and on chart.. 14:55:10 Lab results completed and on chart. 14:56:41 Patient Weight : 67 kg 14:56:50 Patient Height : 182.88 cm 14:58:39 Patient received from PCU to CCL 2 Alert and oriented. Tansferred to table in Supine position. 14:58:40 Warm blankets applied, and abdoulaye hugger turned on for patient comfort. 14:58:41 Correct patient and procedure confirmed by team. 14:58:43 Signed procedure consent form obtained from patient. 14:58:45 ECG and BP/O2 sat monitors applied to patient. 15:06:21 Vital chart was started 15:07:15 Zofran 4 mg I.V. was administered by Kylie Spencer RN; Per physician; 15:08:41 Baseline sample Acquired. 15:09:00 Rhythm: sinus rhythm 15:09:01 Full Disclosure recording started 15:09:02 Pre-procedure instructions explained to patient. 15:09:06 Family in patients room. 15:09:07 Patient NPO since Midnight. 15:09:08 Is the patient allergic to Iodine/contrast media? No. 15:09:10 Is patient on blood thinner?No 15:09:12 Patient diabetic? No. 15:09:14 Previous problem with sedation/anesthesia? No ? 15:09:14 Snore? Yes 15:09:15 Sleep apnea? No 15:09:16 Deviated septum? No 15:09:17 Opens mouth fully? Yes 15:09:20 Sticks out tongue? Yes 15:09:48 Oxygen 2 l/min NC was administered by Kylie Spencer RN; Per physician; 15:09:57 Heparin Flush Bag (1000units/500ml NS) 2 bags added to field was administered by Marvel Fowler MD; used for procedure; 15:10:03 Lidocaine 2% 20ml vial added to field was administered by Marvel Fowler MD; used for procedure; 15:10:11 Radial Cocktail (Verapomil 2mg/Nitro 400mcg/Heparin 1500units) 1 syringe added to field was administered by Marvel Fowler MD; used for procedure; 15:14:02 Airway obstruction? No ? 15:14:06 Dentures? Yes OUT 15:14:09 Pre procedure: right dorsailis pedis pulse 1+ Palpable, but thready & weak; easily obliterated 15:14:11 Modified Nakul's test Ulnar < 7 seconds 15:14:12 Patient pain scale 0/10 ?. 15:14:39 IV patent on arrival in left forearm with 0.9% NaCl at [facility]. 15:14:43 Right Radial & Right Groin area was prepped with chlora-prep and draped in sterile fashion 15:14:44 Alarms reviewed by R. N. 15:14:44 Sharps counted by scrub and verified by R.N. 15:14:48 Use device set Radial Dx 15:14:50 Tegaderm 4 x 4 opened to sterile field. 15:14:51 Acist Hand Control opened to sterile field. 15:14:51 Acist Manifold opened to sterile field. 15:14:52 Acist Syringe opened to sterile field. 15:14:53 Medline Cath Pack opened to sterile field. 15:14:53 Bag Decanter opened to sterile field. 15:14:53 Terumo 6Fr Slender Glidesheath opened to sterile field. 15:14:54 St Shankar 260cm J .035 wire opened to sterile field. 15:14:54 MBrace Wrist Support opened to sterile field. 15:16:41 --------ALL STOP TIME OUT------ 15:16:41 Final Timeout: patient, procedure, and site verified with staff and physician. All members of the team are in agreement. 15:16:42 Versed 1 mg I.V. was administered by Kylie Spencer RN; for sedation; 15:16:43 Right Radial & Right Groin site verified by team. 15:16:48 Fentanyl 50 mcg I.V. was administered by Kylie Spencer RN; for sedation; 15:16:51 Physical assessment completed. ASA score P 2 - A patient with mild systemic disease as per Marvel Fowler MD. 15:16:54 Sedation plan: IV Moderate Sedation Versed, Fentanyl 15:18:45 Fentanyl 50 mcg I.V. was administered by Kylie Spencer RN; for sedation; 15:18:47 Versed 1 mg I.V. was administered by Kylie Spencer RN; for sedation; 15:20:37 Fentanyl 50 mcg I.V. was administered by Kylie Spencer RN; for sedation; 15:20:45 Versed 1 mg I.V. was administered by Kylie Spencer RN; for sedation; 15:20:51 Procedure started. 15::57 Local anesthetic to right radial artery with Lidocaine 2% by Marvel Fowler MD.INITIAL ACCESS ONLY 15::36 Fentanyl 50 mcg I.V. was administered by Kylie Spencer RN; for sedation; 15::43 Versed 1 mg I.V. was administered by Kylie Spencer RN; for sedation; 15::30 A 6 Fr Short sheath was inserted into the Right Femoral artery 15::37 Radial Cocktail (Verapomil 2mg/Nitro 400mcg/Heparin 1500units) 1 syringe I.A. was administered by Marvel Fowler MD; for vasodilation; 15::41 A Terumo 5Fr Arun 110cm catheter was advanced over the wire and used for Procedure. 15::51 Fentanyl 50 mcg I.V. was administered by Kylie Spencer RN; for sedation; 15::56 Versed 1 mg I.V. was administered by Kylie Spencer RN; for sedation; 15::08 LV angiography performed. 15:25:10 LV gram done using RIVERA 15:25:17 EF : 55 % 15:25:24 LV hemodynamics recorded. 15::27 Injector settings: Ml/sec: 7, Volume: 15, 15:25:49 RCA angiography performed. 15::39 Fentanyl 50 mcg I.V. was administered by Kylie Spencer RN; for sedation; 15::45 Versed 1 mg I.V. was administered by Kylie Spencer RN; for sedation; 15::59 LCA angiography performed. 15::48 Catheter removed. 15::53 Terumo TR Band Standard opened to sterile field. 15::09 Sheath removed intact; hemostasis achieved with Mechanical Compression to the Right Femoral artery. 15::37 Procedure ended.(Physican Out) 15:30:47 Fluoroscopy time 01.90 minutes. 15::51 Fluoroscopy dose: 285 mGy 15:30:51 Flurop Dose total: 285 15::55 Contrast amount:Isovue 300 61ml. 15:30:58 Sharps counted by scrub and verified by R.N. 15:31:00 TR band inflated with 12cc of air. 15:31:01 Insertion/operative site no bleeding no hematoma. 15:31:02 Post Procedure Pulses reassessed and unchanged 15:31:05 Post-procedure physical assessment completed. ASA score P 2 - A patient with mild systemic disease as per Marvel Fowler MD. 15:31:07 Post procedure rhythm: unchanged. 15:31:09 Estimated blood loss: 10 ml 15:31:11 Post procedure instruction explained to patient.Patient verbalizes understanding. 15:31:11 Patient needs reinforcement of post procedure teaching. 15:31:17 Procedure type changed to Cath procedure, Diagnostic procedure, LHC, LHC w/Coronaries, Miscellaneous Procedures, Moderate Sedation up to 15 minutes 15:31:20 Procedure Complication : No complications 15:31:37 Procedure and supply charges have been captured, reviewed, submitted and are correct. 15:31:39 Vital chart was stopped 15:31:40 See physician's report for complete and final results. 15:31:41 Report given to PCU. 15:31:43 Patient transfered to PCU with Bed. 15:31:45 Procedure ended. 15:31:45 Full Disclosure recording stopped 15:31:48 End room use (Document Last) Device Usage Item Name Manufacture Quantity Catalog Hospital Part Current Minimal Lot# / Number Charge Number Stock Stock Serial# Code Tegaderm 4 1 [id number] [id number] 5 x 4 Acist Hand Acist 1 97807 361515 850232 845947 5 Control Medical Systems Inc Acist Acist 1 45460 071307 380623 064562 5 Manifold Medical Systems Inc Acist Acist 1 32765 123810 766577 685730 20 Syringe Medical Systems Inc Medline Cardinal 1 [id number] 367590 57764 023590 5 Cath Pack Health Bag Microtek 1 2001S 858188 07789 056408 5 Deceucl3D Inc. Terumo 6Fr Terumo 1 [id number] 300543 300023 196067 [address] St Shankar 1 [id number] 033084 878757 896844 30 260cm J .035 wire MBrace Advanced 1 140-0250-00 828069 59351 922095 5 Wrist Vascular Support Dynamics Terumo 5Fr Terumo 1 05-3436 663752 516569 910541 5 Arun 110cm catheter Terumo TR Terumo 1 [id number] 384495 753177 064522 40 Band Standard Signature Audit [place] Stage Time Signature Unsigned Intra-Procedure 04/13/2017 Alton Bertrand 3:32:12 PM RT(R) Signatures Monitor : Alton Bertrand RT Signature : Date : Time : [place] [id number] [place] [address]
[2017-04-13 03:01] VITALS: BP 146/86; Ht 182.9 cm; Wt 63.6 kg
--- NOTE | 2017-04-13 03:08 | NUR ---
MANAGER AMBULATORY AT BEDSIDE FOR VS. NEEDS ADDRESSED AT THIS TIME. CALL LIGHT IN REACH. WILL CONT TO MONITOR.
[2017-04-13 05:20] LABS: CREATINE KINASE 99 UL (21-232)
[2017-04-13 05:26] LABS: TROPONIN-I < 0.017 ng/mL (0.000-0.060)
[2017-04-13 08:00] VITALS: BP 185/97
--- NOTE | 2017-04-13 09:04 | NUR ---
TELEMETRY SB. CONSENTS SIGNED FOR [facility].
[2017-04-13 10:42] LABS: CREATINE KINASE 87 UL (21-232)
[2017-04-13 10:54] LABS: TROPONIN-I < 0.017 ng/mL (0.000-0.060)
[2017-04-13 11:12] LABS: ANION GAP 14.4 mmol/L (8-16); CALCIUM 9.5 mg/dL (8.5-10.1); CARBON DIOXIDE 26.1 mmol/L (21.0-32.0); CREATININE - SERUM 1.3 mg/dL (0.6-1.3); POTASSIUM - SERUM 4.5 mmol/L (3.5-5.1)
[2017-04-13 11:45] LABS: BASOPHILS 0.3 % (0-2); EOSINOPHILS 0.9 % (0-7); HEMATOCRIT 40.4 % (42.0-54.0); HEMOGLOBIN 14.2 g/dL (13.5-17.5); IMMATURE GRANULOCYTES 1.1 % (0-5); LYMPHOCYTES 20.5 % (15-50); MCH 34.3 pg (26.0-34.0); MCHC 35.1 g/dL (31.0-37.0); MCV 97.6 fL (80.0-100.0); MEAN PLATELET VOLUME 11.3 fL (7.4-10.4); MONOCYTES 7.8 % (2-11); NEUTROPHILS 69.4 % (40-80); PLATELET COUNT 228 10x3/uL (130-400); RBC 4.14 10x6/uL (4.20-6.10); WBC 11.5 10x3/uL (4.8-10.8)
[2017-04-13 12:00] VITALS: BP 175/103
--- NOTE | 2017-04-13 15:51 | NUR ---
BACK FROM VACUUM KETTLE COOK. VS WNL. RIGHT WRIST STABLE WITH TR BAND INTACT. WILL MONITOR.
[2017-04-13 16:52] LABS: CKMB 1.1 U/L (0.0-3.6); CREATINE KINASE 87 UL (21-232); TROPONIN-I 0.018 ng/mL (0.000-0.060)
--- NOTE | 2017-04-13 20:08 | NUR ---
RESUMED CARE OF PT, LYING IN BED RESPIRATIONS EVEN AND UNLABORED ON ROOM AIR. 62 SR ON TELEMETRY. LEFT FOREARM INFUSING NS @ KVO. RIGHT WRIST TR BAND INTACT. CALL LIGHT IN REACH. WILL CONTINUE TO MONITOR. SEE NURSE ASSESSMENT. NO NEEDS VOICED AT THIS TIME.
[2017-04-13 21:05] VITALS: BP 134/98
--- NOTE | 2017-04-13 23:44 | NUR ---
DIRECTOR OF PROFESSIONAL SERVICES AT BEDSIDE TO OBTAIN VITALS, CALL LIGHT IN REACH. WILL CONTINUE WITH PLAN OF CARE.
[2017-04-14 01:19] VITALS: BP 126/91
[2017-04-14 05:02] LABS: BASOPHILS 0.2 % (0-2); EOSINOPHILS 0.5 % (0-7); HEMOGLOBIN 13.8 g/dL (13.5-17.5); LYMPHOCYTES 11.7 % (15-50); MCH 34.5 pg (26.0-34.0); MCHC 35.4 g/dL (31.0-37.0); MCV 97.5 fL (80.0-100.0); MEAN PLATELET VOLUME 11.3 fL (7.4-10.4); MONOCYTES 6.9 % (2-11); NEUTROPHILS 79.7 % (40-80); PLATELET COUNT 217 10x3/uL (130-400); RDW 13.2 % (11.5-14.5)
[2017-04-14 05:07] LABS: WBC 8.3 10x3/uL (4.8-10.8)
[2017-04-14 05:15] LABS: ANION GAP 13.4 mmol/L (8-16); CALCIUM 8.8 mg/dL (8.5-10.1); CARBON DIOXIDE 27.9 mmol/L (21.0-32.0); CREATININE - SERUM 1.3 mg/dL (0.6-1.3); POTASSIUM - SERUM 4.3 mmol/L (3.5-5.1)
[2017-04-14 06:18] VITALS: BP 136/103
--- NOTE | 2017-04-14 06:22 | NUR ---
NO CHANGES FROM PREVIOUS ASSESSMENT, CALL LIGHT IN REACH.
[2017-04-14 08:22] VITALS: BP 137/92
--- NOTE | 2017-04-14 09:11 | NUR ---
TELEMETRY SR. UP AMBULATING WITH PT ASSIST.
[2017-04-14 12:14] VITALS: BP 152/95
--- NOTE | 2017-04-14 14:19 | CN ---
PATIENT NAME:DILLON OLPEZ MEDICAL RECORD: [id number] : 68 LOCATION:D.M2 D.2118 ADMIT DATE: 04/13/17 ACCOUNT: [id number] CONSULTING PHYSICIAN: NOHELIA SANTOS MD REFERRING PHYSICIAN: VINEET SAVAGE MD CARDIOLOGY CONSULT HISTORY OF PRESENT ILLNESS: This is a 47-year-old gentleman with a history of coronary artery disease status post intervention via Dr. Rodriguez. He has felt bad over at least the last month with marked constitutional symptomatology - nausea, fatigue, tiredness, dyspnea. No new medications. He remains on Plavix. He gets dyspneic with minimal exertion. We were asked to see him concerning his cardiovascular status. PAST MEDICAL HISTORY: 1. History of coronary artery disease described above. 2. Hypothyroidism on replacement. ALLERGIES: Clonidine. CURRENT MEDICATIONS: Thyroid 32.4 micrograms daily. Prednisone 10 milligrams by mouth daily. Zofran 4 milligrams every six hours as needed. Ativan 1 milligram twice a day as needed. [place] 5/325 milligrams every four hours as needed. Cymbalta 20 milligrams at bedtime. Plavix 75 milligrams every day. SOCIAL HISTORY: He lives in [place]. He is a nonsmoker. No set exercise program. REVIEW OF SYSTEMS: Standard. PHYSICAL EXAMINATION: GENERAL: This is a middle-aged gentleman in no acute distress. VITAL SIGNS: Blood pressure 185/97. Pulse 56 and regular. HEAD, EYES, EARS, NOSE, AND THROAT: Normocephalic, atraumatic. NECK: No bruits were noted. HEART: Regular. LUNGS: Lung garzon clear. PULSES: 2+ with no edema. NEUROLOGIC: Grossly intact. ELECTROCARDIOGRAM: Without acute changes. IMPRESSION AND PLAN: Chest pain reminiscent of previous angina. Plan for angiography with intervention based upon the above. CONSULT REPORT [id number] JESSICANOHELIA FRAIRE MD at 1419 CC: [id number] DICTATION DATE: 04/13/17 1400 PACKAGING INSPECTOR: DM 04/13/17 1610 ADM IN [place] [id number]
--- NOTE | 2017-04-14 14:19 | OP ---
PATIENT NAME: DILLON LOPEZ MEDICAL RECORD: [id number] :68 LOCATION:D.M2 D.2118 ADMISSION DATE:04/13/17 SURGEON: NOHELIA SANTOS MD OPERATION DATE: 04/13/17 PROCEDURES: 1. Left heart catheterization. 2. Selective coronary angiography. PROCEDURE IN DETAIL: After informed consent was obtained and after detailed explanation of risks, benefits, as well as alternative therapies, the patient elected to proceed with angiogram. The right radial area was prepped and draped in a normal sterile fashion. The right radial artery was cannulated via modified Seldinger technique with placement o f radial sheath, Reardan catheter. All catheters exchanged through this sheath. The procedure was well-tolerated, and the patient was returned to the [facility]ina after the sheath was removed and TR band was placed. FINDINGS: Left ventriculography was performed in standard 30 degree RIVERA view, normal wall motion, normal systolic function. CORONARY ANATOMY: 1. LEFT MAIN: The left main is free of disease. 2. LEFT ANTERIOR DESCENDING: The left anterior descending is free of disease as is the diagonal system. 3. CIRCUMFLEX: The left circumflex is free of disease as is the marginal system. 4. RIGHT CORONARY ARTERY: The right coronary artery is the dominant artery, gives rise to the PDA, free of disease. IMPRESSION: No evidence of restenosis. No evidence of progression of major disease. Normal left ventricular function. Normal valvular function. NOHELIA SANTOS MD at 1419 CC: [id number] DICTATION DATE: 04/13/17 1400 SENIOR BENEFITS ANALYST: DM 04/13/17 1625 ADM IN [facility] [address] [place] [id number]
--- NOTE | 2017-04-14 16:31 | NUR ---
IV AND TELEMETRY DCD. DC PLANS GIVEN. UNDERSTANDING VOICED. LEAVING HOSP WITH MOTHER.
== END 2017-04-14 16:34 | disposition home or self-care (01) ==
LOC: D.ER 00:40 → OBSVTIME 01:29 → D.M2 01:29
PROVIDERS: Emergency Medicine; Internal Medicine Interventional Cardiology; ADMIT Emergency Medicine
DX: R07.89 Other chest pain (principal); I25.10 Atherosclerotic heart disease of native coronary artery without angina pectoris; E03.9 Hypothyroidism, unspecified; N28.1 Cyst of kidney, acquired; R31.9 Hematuria, unspecified; F17.203 Nicotine dependence unspecified, with withdrawal; E87.1 Hypo-osmolality and hyponatremia; K21.9 Gastro-esophageal reflux disease without esophagitis; I10 Essential (primary) hypertension

== ENCOUNTER → 2017-05-12 15:19 | Outpatient (CLI) | payer MEDICAID ==
[2017-04-13 03:01] VITALS: BMI 19.7
== END | disposition home or self-care (01) ==
LOC: D.LABREF 15:19
DX: R31.9 Hematuria, unspecified (principal)

== ENCOUNTER → 2017-05-19 10:40 | Outpatient (CLI) | payer MEDICAID ==
[2017-04-13 03:01] VITALS: BMI 19.7
== END | disposition home or self-care (01) ==
LOC: D.US 05-16 10:00
DX: N28.89 Other specified disorders of kidney and ureter (principal)

== ENCOUNTER → 2017-05-27 18:02 | Outpatient (CLI) | payer MEDICAID ==
[2017-04-13 03:01] VITALS: BMI 19.7
== END | disposition home or self-care (01) ==
LOC: D.LABREF 18:02
PROVIDERS: Urology
DX: B44.9 Aspergillosis, unspecified (principal)

== ENCOUNTER → 2017-06-08 08:45 | Outpatient (CLI) | payer MEDICAID ==
[2017-04-13 03:01] VITALS: BMI 19.7
== END | disposition home or self-care (01) ==
LOC: D.MRI 06-01 08:00
DX: B44.9 Aspergillosis, unspecified (principal); N28.89 Other specified disorders of kidney and ureter

== ENCOUNTER 2017-06-10 12:24 | Emergency (ER) | payer MEDICAID ==
[2017-04-13 03:01] VITALS: BMI 19.7
[2017-06-10 12:51] LABS: BASOPHILS 0.1 % (0-2); EOSINOPHILS 0.5 % (0-7); HEMATOCRIT 41.1 % (42.0-54.0); IMMATURE GRANULOCYTES 0.7 % (0-5); LYMPHOCYTES 8.1 % (15-50); MCH 34.8 pg (26.0-34.0); MCHC 36.5 g/dL (31.0-37.0); MCV 95.4 fL (80.0-100.0); MEAN PLATELET VOLUME 10.3 fL (7.4-10.4); MONOCYTES 5.7 % (2-11); NEUTROPHILS 84.9 % (40-80); PLATELET COUNT 228 10x3/uL (130-400); RBC 4.31 10x6/uL (4.20-6.10); RDW 13.7 % (11.5-14.5); WBC 16.1 10x3/uL (4.8-10.8)
[2017-06-10 13:07] LABS: ALBUMIN 4.3 g/dL (3.4-5.0); BILIRUBIN - TOTAL 1.35 mg/dL (0.2-1.3); CALCIUM 9.5 mg/dL (8.5-10.1); CREATININE - SERUM 1.3 mg/dL (0.6-1.3); POTASSIUM - SERUM 3.9 mmol/L (3.5-5.1); PROTEIN - SERUM 7.8 g/dL (6.4-8.2)
[2017-06-10 13:14] LABS: ANION GAP 9.9 mmol/L (8-16)
[2017-06-10 13:31] LABS: APTT 26.3 SECONDS (22.8-39.4); INR 0.8 (0.85-1.17)
[2017-06-10 15:01] LABS: AMYLASE - SERUM 108 U/L (25-115); LIPASE 239 U/L (73-393)
[2017-06-10 15:02] LABS: TROPONIN-I < 0.017 ng/mL (0.000-0.060)
== END 2017-06-10 18:13 | disposition home or self-care (01) ==
LOC: D.ER 12:24
PROVIDERS: Emergency Medicine; Physician Assistant
DX: R11.2 Nausea with vomiting, unspecified (principal); N28.1 Cyst of kidney, acquired; E87.1 Hypo-osmolality and hyponatremia; Z86.79 Personal history of other diseases of the circulatory system; R00.1 Bradycardia, unspecified; F17.200 Nicotine dependence, unspecified, uncomplicated

== ENCOUNTER 2017-06-12 03:08 | Inpatient (IN) | payer MEDICAID ==
[~2017-06-12] VITALS: Ht 182.9 cm; Wt 66.1 kg
[2017-06-12] VITALS (13 sets, daily range): BP systolic 123–194; BP diastolic 85–110; Ht 182.9 cm; Wt 66.1 kg
[2017-06-12 03:46] LABS: BASOPHILS 0.1 % (0-2); EOSINOPHILS 0.2 % (0-7); HEMATOCRIT 37.5 % (42.0-54.0); HEMOGLOBIN 13.8 g/dL (13.5-17.5); IMMATURE GRANULOCYTES 0.8 % (0-5); LYMPHOCYTES 7.8 % (15-50); MCH 34.8 pg (26.0-34.0); MCHC 36.8 g/dL (31.0-37.0); MCV 94.5 fL (80.0-100.0); MEAN PLATELET VOLUME 10.5 fL (7.4-10.4); MONOCYTES 7.5 % (2-11); NEUTROPHILS 83.6 % (40-80); PLATELET COUNT 235 10x3/uL (130-400); RBC 3.97 10x6/uL (4.20-6.10); RDW 13.5 % (11.5-14.5); WBC 12.9 10x3/uL (4.8-10.8)
[2017-06-12 03:59] LABS: ALBUMIN 4.1 g/dL (3.4-5.0); BILIRUBIN - TOTAL 1.55 mg/dL (0.2-1.3); CALCIUM 9.5 mg/dL (8.5-10.1); CARBON DIOXIDE 29.4 mmol/L (21.0-32.0); CREATININE - SERUM 1.6 mg/dL (0.6-1.3); PROTEIN - SERUM 7.5 g/dL (6.4-8.2)
[2017-06-12 04:00] LABS: POTASSIUM - SERUM 3.2 mmol/L (3.5-5.1)
[2017-06-12 04:01] LABS: ANION GAP 10.8 mmol/L (8-16)
[2017-06-12] MEDS ORDERED: LUNESTA3 MG PO (08:08)
[2017-06-12 08:09] LABS: BASOPHILS 0.1 % (0-2); EOSINOPHILS 0.2 % (0-7); HEMATOCRIT 37.6 % (42.0-54.0); HEMOGLOBIN 13.8 g/dL (13.5-17.5); IMMATURE GRANULOCYTES 0.6 % (0-5); LYMPHOCYTES 4.6 % (15-50); MCH 34.7 pg (26.0-34.0); MCHC 36.7 g/dL (31.0-37.0); MCV 94.5 fL (80.0-100.0); MEAN PLATELET VOLUME 10.6 fL (7.4-10.4); MONOCYTES 4.3 % (2-11); NEUTROPHILS 90.2 % (40-80); PLATELET COUNT 222 10x3/uL (130-400); RBC 3.98 10x6/uL (4.20-6.10); RDW 13.5 % (11.5-14.5); WBC 14.2 10x3/uL (4.8-10.8)
[2017-06-12 08:25] LABS: ANION GAP 10.1 mmol/L (8-16); CALCIUM 9.1 mg/dL (8.5-10.1); CARBON DIOXIDE 30.2 mmol/L (21.0-32.0); CREATININE - SERUM 1.4 mg/dL (0.6-1.3); POTASSIUM - SERUM 3.3 mmol/L (3.5-5.1)
--- NOTE | 2017-06-12 08:26 | NUR ---
PT AOX4 RESP EVEN AND NONLABORED PT COMPLAINS OF PAIN OF 9 AT THIS TIME AT BEDSIDE WILL MONITOR
[2017-06-12 09:36] LABS: CKMB 1.7 U/L (0.0-3.6)
[2017-06-12 09:38] LABS: TROPONIN-I < 0.017 ng/mL (0.000-0.060)
--- NOTE | 2017-06-12 10:22 | NUR ---
ROUNDED ON PT AFTER RAPID RESPONSE ENDED. GIRLFRIEND AT BEDSIDE. PT RESTING EYES CLOSED EVEN UNLABORED RESP NOTED. DENIES CURRENT NEEDS. INFORMED IF ANY NEW CONCERNS FLOOR NURSE CAN CONTACT AND WILL ROUND AGAIN.
--- NOTE | 2017-06-12 12:38 | NUR ---
RECEIVED FROM GI LAB VIA BED. PLACED ON MEDICAL OFFICE TECHNICIAN. VSS. PT EASILY AROUSABLE. SPITTING COFFEE GROUND EMESIS. WILL MONITOR.
[2017-06-12 13:05] LABS: HEMATOCRIT 41.1 % (42.0-54.0)
[2017-06-12 13:13] LABS: APTT 24.9 SECONDS (22.8-39.4); INR 0.85 (0.85-1.17); PROTIME 11.5 SECONDS (11.6-15.0)
--- NOTE | 2017-06-12 15:15 | NUR ---
GIRLFRIEND AT BEDSIDE. UPDATED ON CONDITION.
--- NOTE | 2017-06-12 15:30 | NUR ---
REFUSES PROTONIX DRIP. STATES HE WANTS TO LEAVE ICU AND IF HE CAN'T HE WILL "JUST LEAVE THIS WHOLE DAMN PLACE." DR. JAQUEZ PAGED.
--- NOTE | 2017-06-12 15:44 | NUR ---
DR. JAQUEZ NOTIFIED OF PT REFUSAL OF PROTONIX DRIP AND STATEMENTS OF WANTING TO LEAVE. IF PT WISHES TO LEAVE AMA PAGE DR. SAVAGE. NO FURTHER ORDERS.
--- NOTE | 2017-06-12 16:50 | NUR ---
RESTING EYES CLOSED EVEN UNLABORED RESP NOTED. C/L IN REACH.
[2017-06-12 17:38] LABS: ANION GAP 10.9 mmol/L (8-16); CALCIUM 8.4 mg/dL (8.5-10.1); CARBON DIOXIDE 29.5 mmol/L (21.0-32.0); CREATININE - SERUM 1.3 mg/dL (0.6-1.3); MAGNESIUM - SERUM 1.8 mg/dL (1.8-2.4); PHOSPHOROUS 4.2 mg/dL (2.5-4.9); POTASSIUM - SERUM 3.4 mmol/L (3.5-5.1)
--- NOTE | 2017-06-12 18:40 | NUR ---
LAB CALLED TO DR. FUENTES UPON RESULTING. IVF RESTARTED AT 125 ML/HR PER ORDER
--- NOTE | 2017-06-12 19:30 | NUR ---
REPORT REC'D AND CARE ASSUMED, REC'D PT ON O2 @ 3 LITERS VIA NC, AWAKE, ALERT, ORIENTED X 3, RIGHT UPPER ARM PIV WITH NS @ 125CC/HR, CM-SR, BP ELEVATED, PT COMPLAINS OF BURNING IN CHEST AND KIDNEYS HURTING, RATING PAIN "9" ON 0-10 PAIN SCALE, REQUESTING PAIN MEDICATION, MAEE, SR UP X 2, BED IN LOW POSITION, CALL LIGHT IN REACH.
[2017-06-12 19:59] LABS: APPEARANCE HAZY (CLEAR); BILIRUBIN NEGATIVE (NEGATIVE); COLOR YELLOW (YELLOW); GLUCOSE NEGATIVE (NEGATIVE); KETONE NEGATIVE (NEGATIVE); LEUKOCYTE ESTERASE NEGATIVE (NEGATIVE); NITRITE NEGATIVE (NEGATIVE); PH 6.5 (5.0-6.0); PROTEIN NEGATIVE (NEGATIVE); SPECIFIC GRAVITY 1.015 (1.005-1.020); UROBILINOGEN NORMAL (NORMAL)
[2017-06-12 20:11] LABS: AMORPHOUS SEDIMENT >1+ /lpf (NONE SEEN); BACTERIA FEW /hpf (NONE SEEN); EPITHELIAL CELLS RARE /hpf (0-5); GRANULAR CAST 0-5 /lpf (NONE SEEN); RED CELLS - URINE 0-5 /hpf (0-5); WHITE CELLS - URINE OCC /hpf (0-5)
[2017-06-12 20:17] LABS: HEMATOCRIT 38.5 % (42.0-54.0); HEMOGLOBIN 14.1 g/dL (13.5-17.5)
--- NOTE | 2017-06-12 20:20 | NUR ---
ROUTINE DOSE OF CARAFATE AND 1MG DILAUDID GIVEN SLOW IVP FOR PAIN, PT BELCHING AND COMPLAINING OF NAUSEA, 4MG ZOFRAN GIVEN SLOW IVP, WILL MONITOR CLOSELY FOR CHANGES.
--- NOTE | 2017-06-12 20:45 | NUR ---
EVENING MEDS BROUGHT TO PT, PT TOOK LUNESTA ONLY, REFUSED POTASSIUM AND ATIVAN, STATES " I DON'T NEED THE ATIVAN" AND " I BLEEDING ON THE INSIDE I DON'T NEED THAT POTASSIUM", EXPLAINED TO PT THE POTASSIUM WAS FOR HIS DECREASED POTASSIUM LEVEL, STATES " I DON'T WANT TO TAKE IT".
--- NOTE | 2017-06-12 21:00 | NUR ---
SIGNIFICANT OTHER AT BS FOR VISITING, UPDATE PROVIDED AND QUESTIONS ANSWERED.
--- NOTE | 2017-06-12 21:50 | NUR ---
PT REQUESTING NS BE STOPPED, STATES " IT IS MAKING ME BURN IN MY CHEST", EXPLAINED TO PT THAT THE NS WAS NOT MAKING HIM BURN IN HIS CHEST, EXPLAINED HE WAS RECIEVING FOR DECREASED SODIUM LEVEL, PT STATES " I UNDERSTAND THAT IT WILL MAKE ME PROJECTILE VOMIT IF YOU DO NOT TURN IT OFF", SIGNIFICANT OTHER AT BS STATES "HE WILL VOMIT EVERYWHERE REALLY", PT DEMANDING NS BE STOPPED, NS OFF AND RIGHT UPPER ARM PIV SALINE LOCKED.
--- NOTE | 2017-06-12 23:20 | NUR ---
PT REQUESTING PROTONIX, COMPLAINS OF CHEST BURNING AND STOMACH HURTING, STATES " I HAVE TO HAVE SOME RELIEF", PROTONIX GTT BEGUN AT 10CC/HR VIA RIGHT UPPER ARM, PT REQUESTING PAIN MEDICATION INFORMED IT WAS TO EARLY FOR PAIN MEDICATION, PT ASSISTED TO SIT ON SIDE OF BED, EMESIS BASIN IN REACH.
[2017-06-13] VITALS (8 sets, daily range): BP systolic 128–212; BP diastolic 99–118
--- NOTE | 2017-06-13 | NUR ---
DILAUDID 1MG GIVEN SLOW IVP AND ROUTINE DOSE OF CARAFATE, BP ELEVATED WILL MONITOR CLOSLEY FOR CHANGES.
--- NOTE | 2017-06-13 00:25 | NUR ---
PT RESTING IN BED EYES CLOSED, BP ELEVATED, SR UP X 2, VISIBLE TO NURSES STATION
--- NOTE | 2017-06-13 03:00 | NUR ---
PT REQUESTING PAIN MEDICATION HOLDING CHEST, BP 193/132, 0.625 ENALAPRIL GIVEN SLOW IVP, INFORMED PT IT WAS TOO SOON FOR PAIN MEDICATION AT THIS TIME, PT STATES "THAT BLOOD PRESSURE MEDICATION WILL DROP ME TO LOW THEY DIDN'T STOP THAT", ATTEMPTED TO EDUCATE PT ON MEDICATION AND NEED TO LOWER BP AT THIS TIME, CONTINUES TO ARGUE THAT IT WILL DROP HIM TO LOW, WILL MONITOR CLOSELY FOR CHANGES.
[2017-06-13 03:44] LABS: BASOPHILS 0 % (0-2); EOSINOPHILS 0 % (0-7); HEMATOCRIT 38.9 % (42.0-54.0); HEMOGLOBIN 14.2 g/dL (13.5-17.5); IMMATURE GRANULOCYTES 0.5 % (0-5); LYMPHOCYTES 3.2 % (15-50); MCH 34.8 pg (26.0-34.0); MCHC 36.5 g/dL (31.0-37.0); MCV 95.3 fL (80.0-100.0); MEAN PLATELET VOLUME 10.8 fL (7.4-10.4); MONOCYTES 6.1 % (2-11); NEUTROPHILS 90.2 % (40-80); PLATELET COUNT 232 10x3/uL (130-400); RBC 4.08 10x6/uL (4.20-6.10); RDW 13.5 % (11.5-14.5); WBC 16.6 10x3/uL (4.8-10.8)
--- NOTE | 2017-06-13 03:55 | NUR ---
DILAUDID AND CARAFATE PROVIDED AT THIS TIME, BP 161/115 AFTER ENALAPRIL, WILL CONT TO MONITOR CLOSELY FOR CHANGES.
[2017-06-13 04:13] LABS: ANION GAP 11.9 mmol/L (8-16); CALCIUM 8.6 mg/dL (8.5-10.1); CARBON DIOXIDE 30.6 mmol/L (21.0-32.0); CREATININE - SERUM 1.4 mg/dL (0.6-1.3); PHOSPHOROUS 3.6 mg/dL (2.5-4.9); POTASSIUM - SERUM 3.5 mmol/L (3.5-5.1)
[2017-06-13 04:17] LABS: THYROID STIMULATING HORMONE 55.88 uIU/mL (0.36-3.74)
--- NOTE | 2017-06-13 05:00 | NUR ---
PT RESTING EYES CLOSED, RESP EVEN AND UNLABORED, BP SOMEWHAT IMPROVED, WILL CONT TO MONITOR CLOSELY FOR CHANGES.
--- NOTE | 2017-06-13 06:10 | NUR ---
SIGNIFICANT OTHER, PT RESTING EYES CLOSED, UPDATE PROVIDED AND QUESTIONS ANSWERED.
--- NOTE | 2017-06-13 07:00 | NUR ---
REPORT RECIEVED FROM OFF GOING NURSE. PT IN BED RESTING WITH NO S/SX OF DISTRESS/DISCOMFORT NOTED. BREATHING NORMAL AND UNALABORED. HAS A PIV IN RIGHT UPPER ARM WITH PROTONIX AT 10ML/H AND HAS ORDERS FOR NS AT 125ML. NS NOT INFUSING AND EXPLAINED THE PURPOSE OF FLUIDS. PT REFUSED STATING "NS MAKES MY CHEST HEAVY AND MY THROAT WORSE. IM NOT HAVING THAT. MY KIDNEY IS MY PROBLEM." EXPLAINED THAT NS AND ALL THE MEDICATION THAT IS ORDERED IS TO HELP HIM. CALL LIGHT IN REACH. WILL CONT POC.
--- NOTE | 2017-06-13 08:49 | NUR ---
REFUSED ATIVAN, HYDROCODONE AND NS. "I ONLY TAKE ATIVAN WHENEVER I NEED IT AND THAT HAVE BEEN GIVING ME DILAUDID FOR MY PAIN. PRN DILAUDID GIVEN IV WITH EFFECTIVESS WITH NO S/SX OF ASE NOTED.
--- NOTE | 2017-06-13 09:30 | NUR ---
PT'S CAME TO ME STATING THAT PT IS WANTING TO LEAVE AMA. CHARGE NURSE AT BED SIDE SPEAKING WITH PT. SEE CHARGE NURSE NOTE. MD NOTIFIED AND AWARE OF AMA. PT BREATHING NORMALLY AND UNLABORED. 0 S/SX OF DISTRESS/DISCOMFORT NOTED. PT LEFT UNIT WITH A NORMAL STEADY GAIT.
--- NOTE | 2017-06-13 09:49 | NUR ---
2167 SPOKE WITH PT AT LENGTH RE CARE AND TX.. PT STATES THAT HE HAS BEEN DEALING WITH HIS PROBLEM FOR A NUMBER OF YEARS AND NO ONE IS TREATING IT RIGHT.. HE DOES NOT NEED THE IV FLUID AND THE MEDICATIONS ARE KILLING HIM.. STATES HE HAS BEEN TO MULTIPLE DRs SEEKING TREATMENT AND NO ONE HAS FIXED HIM.. IT WAS POINTED OUT TO THE PATIENT AT THIS TIME THAT WHAT THE DRs ARE DOING NOW MAYBE THE CURE AND HE ARRGUED AND SAID THAT THEY DIDNT KNOW WHAT THEY WERE DOING AND HE WAS LEAVING.. PT IS ART THE BEDSIDE AND SHE IS AGREEING WITH THE PATIENT... PIV REMOVED ,DR MALONE IN UNIT AND INFORMED OF PTS AMA DECISION .. ALL AMA PARTICULARS SPOKEN ABOUT WITH PT.. PT SIGNED PAPERS AND LEFT WITH WALKING OUT OF UNIT.
== END 2017-06-13 10:25 | disposition left against medical advice (07) | DRG 381 ==
LOC: D.ER 03:08 → D.MS 07:22 → D.ICU 07:22
PROVIDERS: Family Medicine; Internal Medicine Gastroenterology; Internal Medicine Nephrology; ADMIT Emergency Medicine
PROC: 0DB78ZX Excision of Stomach, Pylorus, Via Natural or Artificial Opening Endoscopic, Diagnostic (ICD-10-PCS; 2017-06-12)
PROC: 0DB68ZX Excision of Stomach, Via Natural or Artificial Opening Endoscopic, Diagnostic (ICD-10-PCS; 2017-06-12)
PROC: 0DB58ZX Excision of Esophagus, Via Natural or Artificial Opening Endoscopic, Diagnostic (ICD-10-PCS; principal; 2017-06-12 11:35)
DX: K22.11 Ulcer of esophagus with bleeding (principal); D62 Acute posthemorrhagic anemia; E27.1 Primary adrenocortical insufficiency; E87.1 Hypo-osmolality and hyponatremia; F17.203 Nicotine dependence unspecified, with withdrawal; K44.9 Diaphragmatic hernia without obstruction or gangrene; I10 Essential (primary) hypertension; K21.9 Gastro-esophageal reflux disease without esophagitis; E87.6 Hypokalemia; G20 Parkinson's disease; K29.50 Unspecified chronic gastritis without bleeding

== ENCOUNTER → 2017-07-13 10:03 | Outpatient (CLI) | payer MEDICAID ==
[2017-06-12 08:08] VITALS: BMI 19.7
[2017-07-13 12:34] LABS: GLUCOSE - CSF 60 MG/DL (40-75); PROTEIN - CSF 98 MG/DL (12-60)
[2017-07-13 13:25] LABS: APPEARANCE - CSF CLEAR
[2017-07-13 13:28] LABS: RBC - CSF 0 cmm (0-0)
== END | disposition home or self-care (01) ==
LOC: D.LAB 09:30 → D.RAD 10:30
PROVIDERS: Family Medicine
DX: R51 Headache (principal); R11.0 Nausea

== ENCOUNTER → 2017-09-16 12:29 | Outpatient (CLI) | payer MEDICAID ==
[2017-06-12 08:08] VITALS: BMI 19.7
== END | disposition home or self-care (01) ==
LOC: D.NM 12:29
DX: R11.2 Nausea with vomiting, unspecified (principal)

== ENCOUNTER → 2017-10-17 14:30 | Outpatient (CLI) | payer MEDICAID ==
[2017-06-12 08:08] VITALS: BMI 19.7
== END | disposition home or self-care (01) ==
LOC: D.US 14:30
DX: I12.9 Hypertensive chronic kidney disease with stage 1 through stage 4 chronic kidney disease, or unspecified chronic kidney disease (principal); N18.3 Chronic kidney disease, stage 3 (moderate)

== ENCOUNTER 2017-12-05 03:19 | Emergency (ER) | payer MEDICAID ==
[2017-06-12 08:08] VITALS: BMI 19.7
[2017-12-05 03:53] LABS: BASOPHILS 0.1 % (0-2); EOSINOPHILS 0.5 % (0-7); HEMATOCRIT 35.7 % (42.0-54.0); HEMOGLOBIN 12.4 g/dL (13.5-17.5); IMMATURE GRANULOCYTES 1.3 % (0-5); LYMPHOCYTES 13.2 % (15-50); MCH 33.9 pg (26.0-34.0); MCHC 34.7 g/dL (31.0-37.0); MCV 97.5 fL (80.0-100.0); MEAN PLATELET VOLUME 10.4 fL (7.4-10.4); MONOCYTES 6.1 % (2-11); NEUTROPHILS 78.8 % (40-80); PLATELET COUNT 217 10x3/uL (130-400); RBC 3.66 10x6/uL (4.20-6.10); RDW 14.1 % (11.5-14.5); WBC 12.4 10x3/uL (4.8-10.8)
[2017-12-05 04:07] LABS: ALBUMIN 3.8 g/dL (3.4-5.0); ALKALINE PHOSPHATASE 79 U/L (46-116); ALT (SGPT) 43 U/L (10-68); BILIRUBIN - TOTAL 0.75 mg/dL (0.2-1.3); CALC OSMOLALITY 251 mosm/kg (275-300); CALCIUM 8.8 mg/dL (8.5-10.1); CARBON DIOXIDE 31.5 mmol/L (21.0-32.0); CHLORIDE - SERUM 89 mmol/L (98-107); CREATININE - SERUM 1.2 mg/dL (0.6-1.3); GLUCOSE 92 mg/dL (74-106); POTASSIUM - SERUM 4.4 mmol/L (3.5-5.1); PROTEIN - SERUM 7.2 g/dL (6.4-8.2); SODIUM 126 mmol/L (136-145); UREA NITROGEN 9 mg/dL (7-18); eGFR NON AFRICAN AMERICAN 69 mL/min (90-120)
[2017-12-05 04:17] LABS: AMYLASE - SERUM 101 U/L (25-115); CHOL - HDL RATIO 5.3 ratio (2.3-4.9); CHOLESTEROL, TOTAL 292 mg/dL (0-200); CKMB 2.1 U/L (0.0-3.6); CREATINE KINASE 97 UL (21-232); HDL CHOLESTEROL 55 mg/dL (32-96); LDL CHOLESTEROL 201 mg/dL (0-100); LDL-HDL RATIO 3.7 ratio (1.5-3.5); LIPASE 253 U/L (73-393); TRIGLYCERIDE 183 mg/dL (30-200)
[2017-12-05 04:19] LABS: TROPONIN-I < 0.017 ng/mL (0.000-0.060)
[2017-12-05 07:32] LABS: CKMB 1.8 U/L (0.0-3.6); CREATINE KINASE 89 UL (21-232); TROPONIN-I < 0.017 ng/mL (0.000-0.060)
[2018-01-30] MEDS ORDERED: CARAFATE1 G PO (21:26)
== END 2017-12-05 08:44 | disposition home or self-care (01) ==
LOC: D.ER 03:19
PROVIDERS: Family Medicine
DX: R07.89 Other chest pain (principal); M19.90 Unspecified osteoarthritis, unspecified site; K21.9 Gastro-esophageal reflux disease without esophagitis; F17.200 Nicotine dependence, unspecified, uncomplicated; R00.1 Bradycardia, unspecified

== ENCOUNTER 2017-12-07 20:47 | Emergency (ER) | payer MEDICAID ==
[2017-06-12 08:08] VITALS: BMI 19.7
[2017-12-07 21:18] LABS: BASOPHILS 0.2 % (0-2); EOSINOPHILS 0.3 % (0-7); HEMATOCRIT 42.2 % (42.0-54.0); HEMOGLOBIN 14.8 g/dL (13.5-17.5); IMMATURE GRANULOCYTES 1.9 % (0-5); LYMPHOCYTES 16.4 % (15-50); MCH 34.7 pg (26.0-34.0); MCHC 35.1 g/dL (31.0-37.0); MCV 98.8 fL (80.0-100.0); MEAN PLATELET VOLUME 10.3 fL (7.4-10.4); MONOCYTES 7.1 % (2-11); NEUTROPHILS 74.1 % (40-80); PLATELET COUNT 270 10x3/uL (130-400); RBC 4.27 10x6/uL (4.20-6.10); RDW 14.5 % (11.5-14.5); WBC 11.5 10x3/uL (4.8-10.8)
[2017-12-07 21:32] LABS: ALBUMIN 4.6 g/dL (3.4-5.0); ANION GAP 12.4 mmol/L (8-16); BILIRUBIN - TOTAL 1.06 mg/dL (0.2-1.3); CALCIUM 9.6 mg/dL (8.5-10.1); CARBON DIOXIDE 30.8 mmol/L (21.0-32.0); CREATININE - SERUM 1.3 mg/dL (0.6-1.3); POTASSIUM - SERUM 4.2 mmol/L (3.5-5.1); PROTEIN - SERUM 8.4 g/dL (6.4-8.2)
[2017-12-07 22:31] LABS: APPEARANCE CLEAR (CLEAR); BILIRUBIN NEGATIVE (NEGATIVE); COLOR YELLOW (YELLOW); GLUCOSE NEGATIVE (NEGATIVE); KETONE NEGATIVE (NEGATIVE); NITRITE NEGATIVE (NEGATIVE); PROTEIN NEGATIVE (NEGATIVE); UROBILINOGEN NORMAL (NORMAL)
[2018-01-30] MEDS ORDERED: CARAFATE1 G PO (21:26)
== END 2017-12-07 23:04 | disposition home or self-care (01) ==
LOC: D.ER 20:47
PROVIDERS: Emergency Medicine
DX: K59.00 Constipation, unspecified (principal); E27.1 Primary adrenocortical insufficiency; K21.9 Gastro-esophageal reflux disease without esophagitis

== ENCOUNTER 2017-12-14 11:12 | Inpatient (IN) | payer MEDICAID ==
[~2017-12-14] VITALS: Ht 182.9 cm; Wt 68.7 kg
[2017-12-14 12:09] LABS: BASOPHILS 0.1 % (0-2); EOSINOPHILS 0.3 % (0-7); HEMATOCRIT 40.2 % (42.0-54.0); HEMOGLOBIN 14.7 g/dL (13.5-17.5); IMMATURE GRANULOCYTES 1.6 % (0-5); LYMPHOCYTES 19.5 % (15-50); MCH 34.5 pg (26.0-34.0); MCHC 36.6 g/dL (31.0-37.0); MCV 94.4 fL (80.0-100.0); MEAN PLATELET VOLUME 10.6 fL (7.4-10.4); NEUTROPHILS 71.5 % (40-80); PLATELET COUNT 249 10x3/uL (130-400); RBC 4.26 10x6/uL (4.20-6.10); RDW 13.7 % (11.5-14.5); WBC 9.6 10x3/uL (4.8-10.8)
[2017-12-14 12:39] LABS: ALBUMIN 4.2 g/dL (3.4-5.0); ALKALINE PHOSPHATASE 81 U/L (46-116); ALT (SGPT) 34 U/L (10-68); CALC OSMOLALITY 243 mosm/kg (275-300); CALCIUM 9.2 mg/dL (8.5-10.1); CARBON DIOXIDE 24.6 mmol/L (21.0-32.0); CKMB 2.3 U/L (0.0-3.6); CREATINE KINASE 118 UL (21-232); CREATININE - SERUM 1.3 mg/dL (0.6-1.3); GLUCOSE 97 mg/dL (74-106); POTASSIUM - SERUM 3.6 mmol/L (3.5-5.1); PROTEIN - SERUM 7.8 g/dL (6.4-8.2); SODIUM 121 mmol/L (136-145); TROPONIN-I < 0.017 ng/mL (0.000-0.060); UREA NITROGEN 12 mg/dL (7-18); eGFR NON AFRICAN AMERICAN 62 mL/min (90-120)
[2017-12-14 12:52] LABS: CHLORIDE - SERUM 84 mmol/L (98-107)
[2017-12-14 18:41] LABS: ANION GAP 17.4 mmol/L (8-16); CALCIUM 8.8 mg/dL (8.5-10.1); CARBON DIOXIDE 23.2 mmol/L (21.0-32.0); CREATININE - SERUM 1.2 mg/dL (0.6-1.3); POTASSIUM - SERUM 3.6 mmol/L (3.5-5.1); PROTEIN - SERUM 7.6 g/dL (6.4-8.2)
[2017-12-15 01:41] VITALS: BP 156/98
[2017-12-15 04:47] LABS: HEMOGLOBIN 13.7 g/dL (13.5-17.5)
[2017-12-15 05:06] LABS: INR 0.86 (0.85-1.17); PROTIME 11.4 SECONDS (11.6-15.0)
[2017-12-15 05:16] VITALS: BP 170/103
[2017-12-15 09:50] VITALS: BP 182/105
[2017-12-15 12:06] VITALS: BP 154/109
[2017-12-15 13:36] VITALS: Ht 182.9 cm; Wt 68.7 kg
[2017-12-15 15:16] LABS: HEMATOCRIT 38.1 % (42.0-54.0); HEMOGLOBIN 13.9 g/dL (13.5-17.5)
[2017-12-15 15:39] LABS: ANION GAP 12.5 mmol/L (8-16); CALCIUM 8.6 mg/dL (8.5-10.1); CARBON DIOXIDE 25.8 mmol/L (21.0-32.0); CREATININE - SERUM 1.3 mg/dL (0.6-1.3); POTASSIUM - SERUM 3.3 mmol/L (3.5-5.1); T4 THYROXIN - FREE 0.21 ng/dL (0.76-1.46)
[2017-12-15 15:40] LABS: THYROID STIMULATING HORMONE 106.78 uIU/mL (0.36-3.74)
[2017-12-15 17:27] VITALS: BP 172/110
[2017-12-15 18:50] LABS: APPEARANCE CLEAR (CLEAR); COLOR YELLOW (YELLOW)
[2017-12-15 18:51] LABS: BILIRUBIN NEGATIVE (NEGATIVE); GLUCOSE NEGATIVE (NEGATIVE); KETONE NEGATIVE (NEGATIVE); NITRITE NEGATIVE (NEGATIVE); PROTEIN NEGATIVE (NEGATIVE); SPECIFIC GRAVITY 1.005 (1.005-1.020); UROBILINOGEN NORMAL (NORMAL)
[2017-12-15 20:00] VITALS: BP 173/113
[2017-12-16] VITALS: BP 178/123
[2017-12-16 04:00] VITALS: BP 161/109
[2017-12-16 05:13] LABS: BASOPHILS 0.3 % (0-2); EOSINOPHILS 0.6 % (0-7); HEMATOCRIT 34.9 % (42.0-54.0); HEMOGLOBIN 12.5 g/dL (13.5-17.5); IMMATURE GRANULOCYTES 1.4 % (0-5); MCH 33.9 pg (26.0-34.0); MCHC 35.8 g/dL (31.0-37.0); MCV 94.6 fL (80.0-100.0); MEAN PLATELET VOLUME 10.6 fL (7.4-10.4); MONOCYTES 9.1 % (2-11); NEUTROPHILS 72.6 % (40-80); PLATELET COUNT 200 10x3/uL (130-400); RBC 3.69 10x6/uL (4.20-6.10); RDW 13.8 % (11.5-14.5); WBC 7.9 10x3/uL (4.8-10.8)
[2017-12-16] MEDS ORDERED: CARAFATE1 G/10 ML PO (05:30)
[2017-12-16] MEDS ORDERED: COMBIGAN OPHT DR5 ML EACH EYE (05:30)
[2017-12-16 05:35] LABS: ALBUMIN 3.1 g/dL (3.4-5.0); ALKALINE PHOSPHATASE 67 U/L (46-116); ALT (SGPT) 25 U/L (10-68); BILIRUBIN - DIRECT 0.16 mg/dL (0.00-0.30); CALC OSMOLALITY 262 mosm/kg (275-300); CALCIUM 7.9 mg/dL (8.5-10.1); CARBON DIOXIDE 22.3 mmol/L (21.0-32.0); CHLORIDE - SERUM 101 mmol/L (98-107); CREATININE - SERUM 1.1 mg/dL (0.6-1.3); GLUCOSE 83 mg/dL (74-106); POTASSIUM - SERUM 3.2 mmol/L (3.5-5.1); SODIUM 132 mmol/L (136-145); UREA NITROGEN 9 mg/dL (7-18); eGFR NON AFRICAN AMERICAN 76 mL/min (90-120)
[2017-12-16 08:48] VITALS: BP 86/50
[2017-12-16 11:38] VITALS: BP 181/110
[2017-12-17 17:09] LABS: HEPATITIS C ANTIBODY <0.1 (0.0-0.9)
[2018-01-30] MEDS ORDERED: CARAFATE1 G PO (21:26)
== END 2017-12-16 14:30 | disposition home or self-care (01) | DRG 644 ==
LOC: D.ER 11:12 → D.M2 20:19
PROVIDERS: Emergency Medicine; Internal Medicine Nephrology
DX: E03.9 Hypothyroidism, unspecified (principal); E87.1 Hypo-osmolality and hyponatremia; F17.203 Nicotine dependence unspecified, with withdrawal; E31.0 Autoimmune polyglandular failure; E78.5 Hyperlipidemia, unspecified; I10 Essential (primary) hypertension; I25.10 Atherosclerotic heart disease of native coronary artery without angina pectoris; K21.9 Gastro-esophageal reflux disease without esophagitis; E83.51 Hypocalcemia; E80.6 Other disorders of bilirubin metabolism; Z95.5 Presence of coronary angioplasty implant and graft

== ENCOUNTER 2018-03-13 11:20 | Outpatient (CLI) | payer MEDICAID ==
[~2018-03-13] VITALS: Ht 182.9 cm; Wt 56.8 kg
[~2018-03-13 11:20] MED LIST changes: +CARAFATE1 G PO; +CARAFATE1 G/10 ML PO; +COMBIGAN OPHT DR5 ML EACH EYE
[2018-03-13 11:39] LABS: BASOPHILS 0.3 % (0-2); EOSINOPHILS 1.2 % (0-7); HEMATOCRIT 36.6 % (42.0-54.0); HEMOGLOBIN 12.4 g/dL (13.5-17.5); IMMATURE GRANULOCYTES 0.6 % (0-5); LYMPHOCYTES 29.5 % (15-50); MCH 33.3 pg (26.0-34.0); MCHC 33.9 g/dL (31.0-37.0); MCV 98.4 fL (80.0-100.0); MEAN PLATELET VOLUME 10.4 fL (7.4-10.4); MONOCYTES 7.8 % (2-11); NEUTROPHILS 60.6 % (40-80); PLATELET COUNT 267 10x3/uL (130-400); RBC 3.72 10x6/uL (4.20-6.10); WBC 9.9 10x3/uL (4.8-10.8)
[2018-03-13 11:47] LABS: APTT 27.4 SECONDS (22.8-39.4); INR 0.83 (0.85-1.17)
[2018-03-13 12:01] LABS: ANION GAP 12.2 mmol/L (8-16); CALCIUM 9.5 mg/dL (8.5-10.1); CARBON DIOXIDE 29.6 mmol/L (21.0-32.0); CREATININE - SERUM 1.4 mg/dL (0.6-1.3); POTASSIUM - SERUM 3.8 mmol/L (3.5-5.1)
[2018-03-13 13:49] VITALS: BP 169/111; Ht 182.9 cm; Wt 56.8 kg
[2018-03-15 15:25] LABS: FUNGUS STAIN Final report (())
[2018-04-11 07:28] LABS: FUNGUS MYCOLOGY CULTURE Final report (())
== END 2018-03-13 20:09 | disposition left against medical advice (07) ==
LOC: D.SP 11:20 → D.CT 13:00 → D.SP 13:00 → D.MS 18:49 → D.SP 20:09
PROVIDERS: Specialist
DX: N28.1 Cyst of kidney, acquired (principal); Z01.812 Encounter for preprocedural laboratory examination; F17.200 Nicotine dependence, unspecified, uncomplicated; I10 Essential (primary) hypertension; E03.9 Hypothyroidism, unspecified

== ENCOUNTER → 2018-06-27 12:09 | Outpatient (CLI) | payer MEDICAID ==
[~2018-06-27] VITALS: Ht 182.9 cm; Wt 65.9 kg
--- NOTE | ~2018-06-27 | HEMODYNAMI ---
PATIENT:DILLON LOPEZ MEDICAL RECORD: [id number] : 68 LOCATION:[facility] ADMISSION DATE: 06/27/18 Generatedon:06/27/201814:10 Patient name: DILLON LOPEZ Patient #: [id number] SSN: : 1970 Date of study: 06/27/2018 Page: Of Hemodynamic Procedure Report Patient Data Patient Demographics Procedure consent was obtained First Name: DILLON Gender: Male Last Name: JESSICA : 1970 [facility] Initial: NILO Age: 48 year(s) Patient #: [id number] Race: Additional ID: [id number] Contact details Address: [address] State: [place] City: [place] Zip code: [address] Past Medical History Allergies Allergen Reaction Date Comments Reported Other allergy 12/21/2016 CLONIDINE Other allergy 06/27/2018 Benadryl, Clonidine Admission Admission Data Admission Date: 06/27/2018 Admission Time: 12:09 Procedure Procedure Types Cath Procedure Diagnostic Procedure [facility] w/Coronaries Procedure Description Procedure Date Procedure Date: 06/27/2018 Procedure Start Time: 13:48 Procedure End Time: 14:06 Procedure Staff Name Function Jordon Rodriguez MD Performing Physician Loretta Ha RT Monitor Nancy Guzman RT Scrub Nahed Dahl RN Nurse Renita Oconnell RN Nurse Shaun Chambers RT Steel Plate Printer Procedure Data Cath Procedure Fluoroscopy Diagnostic fluoroscopy Total fluoroscopy Time: 3.4 time: 3.4 min min Diagnostic fluoroscopy Total fluoroscopy dose: 501 dose: 501 mGy mGy Contrast Material Contrast Material Type Amount (ml) Isovue 300 62 Entry Location Entry Primary Successful Side Size Upsize Upsize Entry Closure [place] ccessful Closure Location (Fr) 1 (Fr) 2 (Fr) Remarks Device Remarks Radial Right 6 Fr Mechanical artery Short Compression Estimated blood loss: 10 ml Diagnostic catheters Device Type Used For End Catheter Placement DIAGNOSTIC Arun 110cm Procedure 5Fr catheter ([id number]) Procedure Complications No complications Procedure Medications Medication Administration Route Dosage Oxygen etCO2 Nasal cannula 2 l/min Lidocaine 2% added to field 20 Heparin Flush Bag added to field 2 bags (1000units/500ml NS) 0.9% NaCl I.V. 100 ml/hr Radial Cocktail added to field 1 syringe (Verapomil 2mg/Nitro 400mcg/Heparin 1500units) Versed I.V. 2 mg Fentanyl I.V. 100 mcg Versed I.V. 2 mg Fentanyl I.V. 100 mcg Versed I.V. 2 mg Fentanyl I.V. 100 mcg Hemodynamics Rest Heart Rate: 69 (bpm) Pressure Samples Time Site Value (mmHg) Purpose Heart Use Rate(bpm) 13:52 LV 112/-8,1 Snapshot 73 13:53 AO 94/64(77) Pullback 81 13:53 LV 100/-4,4 Pullback 81 Gradients Valve Time Site 1 Site 2 Mean SEP/DFP Peak To Heart Use (mmHg) (sec/min) Peak Rate (mmHg) (bpm) Aortic 13:53 LV AO 9 5 6 81 100/-4,4 94/64(77) Calculations Valve P-P Mean Valve Index Valve Source Name Gradient Area Flow (cm2) Aortic 6 9 6 9 Snapshots Pre Cath Intra NCS Post Cath Vital Signs Time Heart Resp SPO2 etCO2 NIBP (mmHg) Rhythm Pain Sedation Rate (ipm) (%) (mmHg) Status Level (bpm) 13:29:55 67 19 100 0 160/105(148) NSR 0 (11) 10(A) , No pain 13:34:42 65 15 99 38.2 162/108(126) NSR 0 (11) 10(A) , No pain 13:39:26 62 9 100 39.7 139/105(131) NSR 0 (11) 10(A) , No pain 13:44:07 63 10 100 36.7 151/95(114) NSR 0 (11) 10(A) , No pain 13:48:46 63 8 100 42.7 130/101(114) NSR 0 (11) 10(A) , No pain 13:53:45 66 4 98 44.2 Measuring NSR 0 (11) 10(A) , No pain 13:53:55 66 4 97 38.2 110/73(92) NSR 0 (11) 10(A) , No pain 13:58:35 64 4 98 36.7 113/59(82) NSR 0 (11) 10(A) , No pain 14:03:14 62 6 98 38.2 118/69(86) NSR 0 (11) 10(A) , No pain Medications Time Medication Route Dose Verified Delivered Reason Notes Effectiveness by by 13:28:17 Oxygen etCO2 2 l/min Jordon Buffie used for Nasal Michael Dahl RN procedure cannula 13:28:27 Lidocaine 2% added 20ml Jordon Jordon for local to vial Michael Rodriguez MD anesthetic field 13:28:36 Heparin Flush added 2 bags Jordon Jordon used for Bag to Michael Rodriguez MD procedure (1000units/500ml field NS) 13:28:47 0.9% NaCl I.V. 100 Jordon Buffie Per ml/hr Michael Dahl RN physician 13:35:07 Versed I.V. 2 mg Jordon Buffie for sedation Michael Dahl RN 13:35:14 Fentanyl I.V. 100 mcg Jordon Buffie for sedation Michael Dahl RN 13:38:50 Radial Cocktail added 1 Jordon Jordon for (Verapomil to syringe Michael Rodriguez MD vasodilation 2mg/Nitro field 400mcg/Heparin 1500units) 13:45:18 Versed I.V. 2 mg Jordon Buffie for sedation Michael Dahl RN 13:45:22 Fentanyl I.V. 100 mcg Jordon Buffie for sedation Michael Dahl RN 13:53:30 Versed I.V. 2 mg Jordon Buffie for sedation Michael Dahl RN 13:53:33 Fentanyl I.V. 100 mcg Jordon Buffie for sedation Michael Dahl RN Procedure Log Time Note 13:15:46 Time tracking: Regular hours (M-F 7:00 - 5:00) 13:15:55 Plan of Care:Hemodynamics will remain stable., Cardiac rhythm will remain stable., Comfort level will be maintained., Respiratory function will remain adequate., Patient/ family verbilizes understanding of procedure., Procedure tolerated without complication., Recovers from procedure without complications.. 13:15:57 Signed procedure consent form obtained from patient. 13:16:08 H&P Date Dictated: 06/21/2018 Within 30 days and on chart., H&P Addendum completed by physician on day of procedure. (MUST COMPLETE FOR ALL OUTPATIENTS). 13:18:05 Shaun Chambers RT(R) sent for patient. Start room use. 13:23:11 Patient received from Pre/Post Procedure Room to CCL 1 Alert and oriented. Tansferred to table in Supine position. 13:23:12 Warm blankets applied, and abdoulaye hugger turned on for patient comfort. 13:23:12 Correct patient and procedure confirmed by team. 13:23:14 ECG and BP/O2 sat monitors applied to patient. 13:28:17 Oxygen 2 l/min etCO2 Nasal cannula was administered by Nahed Dahl RN; used for procedure; 13:28:27 Lidocaine 2% 20ml vial added to field was administered by Jordon Rodriguez MD; for local anesthetic; 13:28:36 Heparin Flush Bag (1000units/500ml NS) 2 bags added to field was administered by Jordon Rodriguez MD; used for procedure; 13:28:47 0.9% NaCl 100 ml/hr I.V. was administered by Nahed Dahl RN; Per physician; 13:28:55 Vital chart was started 13:31:10 Baseline sample Acquired. 13:31:15 Rhythm: sinus rhythm 13:31:25 Full Disclosure recording started 13:31:53 H&P Date Dictated: 06/21/2018 Within 30 days and on chart., H&P Addendum completed by physician on day of procedure. (MUST COMPLETE FOR ALL OUTPATIENTS). 13:31:55 Pre-procedure instructions explained to patient. 13:31:58 Family in patients room. 13:31:59 Patient NPO since Midnight. 13:32:19 Patient allergic to Other allergyBenadryl, Clonidine 13:32:30 Is the patient allergic to Iodine/contrast media? No. 13:32:31 Was the patient premedicated? Yes 13:32:41 Is patient on blood thinner?No 13:32:46 Patient diabetic? No. 13:33:00 Previous problem with sedation/anesthesia? No ? 13:33:02 Snore? Yes 13:33:04 Sleep apnea? No 13:33:16 Airway obstruction? Unknown "trouble breathing" 13:33:28 Dentures? No partials out 13:33:32 Patient pain scale 0/10 ?. 13:33:59 IV patent on arrival in left forearm with 0.9% NaCl at O. 13:34:04 Lab results completed and on chart. 13:34:09 Right Radial & Right Groin area was prepped with chlora-prep and draped in sterile fashion 13:34:11 Alarms reviewed by R. N. 13:34:11 Sharps counted by scrub and verified by R.N. 13:34:14 Physician paged 13:34:14 Physician arrived 13:34:16 --------ALL STOP TIME OUT------ 13:34:17 Final Timeout: patient, procedure, and site verified with staff and physician. All members of the team are in agreement. 13:34:19 Right Radial & Right Groin site verified by team. 13:34:24 Physical assessment completed. ASA score P 2 - A patient with mild systemic disease as per Jordon Rodriguez MD. 13:34:28 Sedation plan: IV Moderate Sedation Medication:Versed, Fentanyl 13:34:34 Use device set Radial Dx or PCI 13:34:36 ACIST Syringe (76571) opened to sterile field. 13:34:36 Medline Cath Pack ([id number]) opened to sterile field. 13:34:37 Bag Decanter (2002S) opened to sterile field. 13:34:37 DIAGNOSTIC WIRE .035 260cm J wire (125620) opened to sterile field. 13:34:38 ACIST Hand Control (48913) opened to sterile field. 13:34:38 ACIST Manifold (46541) opened to sterile field. 13:34:39 Tegaderm 4 x 4 (1626W) opened to sterile field. 13:34:40 MBrace Wrist Support ([id number]) opened to sterile field. 13:34:41 NEEDLE Cook 21G 4cm Radial ([id number]) opened to sterile field. 13:34:43 SHEATH 6Fr Prelude Radial ([id number]) opened to sterile field. 13:35:07 Versed 2 mg I.V. was administered by Nahed Dahl RN; for sedation; 13:35:14 Fentanyl 100 mcg I.V. was administered by Nahed Dahl RN; for sedation; 13:38:50 Radial Cocktail (Verapomil 2mg/Nitro 400mcg/Heparin 1500units) 1 syringe added to field was administered by Jordon Rodriguez MD; for vasodilation; 13:45:16 Zero performed for pressure channel P1 13:45:18 Versed 2 mg I.V. was administered by Nahed Dahl RN; for sedation; 13:45:22 Fentanyl 100 mcg I.V. was administered by Nahed Dahl RN; for sedation; 13:47:34 Procedure started. 13:48:02 Local anesthetic to right radial artery with Lidocaine 2% by Jordon Rodriguez MD.INITIAL ACCESS ONLY 13:50:51 A 6 Fr Short sheath was inserted into the Right Radial artery 13:51:30 A DIAGNOSTIC LoopIt 110cm 5Fr catheter ([id number]) was advanced over the wire and used for Procedure. 13:52:18 LV angiography performed. 13:52:57 EF : 60 % 13:53:17 RCA angiography performed. 13:53:30 Versed 2 mg I.V. was administered by Nahed Dahl RN; for sedation; 13:53:33 Fentanyl 100 mcg I.V. was administered by Nahed Dahl RN; for sedation; 14:02:42 Catheter removed. 14:03:13 Sheath removed intact; hemostasis achieved with Mechanical Compression to the Right Radial artery. 14:03:23 TR BAND Standard ([id number]) opened to sterile field. 14:03:28 Procedure ended.(Physican Out) 14:03:40 Fluoroscopy time 03.40 minutes. 14:03:45 Fluoroscopy dose: 501 mGy 14:03:45 Flurop Dose total: 501 14:03:49 Contrast amount:Isovue 300 62ml. 14:03:52 Sharps counted by scrub and verified by R.N. 14:04:37 TR band inflated with 10cc of air. 14:04:54 TR BAND Standard ([id number]) opened to sterile field. 14:05:01 Insertion/operative site no bleeding no hematoma. 14:05:06 Estimated blood loss: 10 ml 14:05:08 Post procedure instruction explained to patient.Patient verbalizes understanding. 14:05:17 Procedure and supply charges have been captured, reviewed, submitted and are correct. 14:06:04 Procedure Complication : No complications 14:06:07 Vital chart was stopped 14:06:13 See physician's report for complete and final results. 14:06:16 Report given to Pre/Post Procedure Room. 14:06:21 Patient transfered to Pre/Post Procedure Room with Stretcher. 14:06:23 Procedure ended. 14:06:23 Full Disclosure recording stopped 14:06:29 End room use (Document Last) Device Usage Item Name Manufacture Quantity Catalog Number Hospital Part Current M inimal Lot# / Charge Number Stock Stock Serial# Code ACIST Syringe Acist 1 95353 [id number] 199751 260898 2 0 (31988) [employer] Inc Medline Cath Cardinal 1 [id number] 467971 [address] [facility] ([id number]) Bag Decanter Microtek 1 2001S 033693 35188 029941 5 (2001S) Medical Inc. DIAGNOSTIC WIRE St Shankar 1 [id number] 352481 169016 352111 3 0 .035 260cm J wire (409173) ACIST Hand Acist 1 15068 191504 190306 941927 5 Control (10848) [employer] Inc ACIST Manifold Acist 1 63723 704015 589380 222362 5 (96039) [employer] Systems Inc Tegaderm 4 x 4 3M 1 1626W 218198 856380 820564 5 (1626W) MBrace Wrist Advanced 1 140-0250-00 842624 47724 247301 5 Support Vascular ([id number]) Dynamics NEEDLE Cook 21G Cook Medical 1 M95117 275599 188327 800637 5 4cm Radial (V91291) SHEATH 6Fr Merit 1 [id number] 778788 680352 693021 5 Prelude Radial Medical ([id number]) DIAGNOSTIC Terumo 1 40-0450 072937 492602 243185 5 Arun 110cm 5Fr catheter (073773) TR BAND Terumo 2 [id number] 412411 122189 947272 4 0 Standard ([id number]) Signature Audit [place] Stage Time Signature Unsigned Intra-Procedure 06/27/2018 Loretta Ha 2:10:23 PM RT(R) Signatures Monitor : Loretta Ha Signature : RT Date : Time : [facility] [address] [place] [address]
[~2018-06-27 12:09] MED LIST changes: +LISINOPRIL2.5 MG PO; +XANAX1 MG PO
[2018-06-27 12:34] VITALS: BP 139/99; Ht 182.9 cm; Wt 65.9 kg
[2018-06-27 12:38] LABS: BASOPHILS 0.3 % (0-2); EOSINOPHILS 1.6 % (0-7); HEMATOCRIT 41.3 % (42.0-54.0); HEMOGLOBIN 14.4 g/dL (13.5-17.5); IMMATURE GRANULOCYTES 0.5 % (0-5); LYMPHOCYTES 23.8 % (15-50); MCH 32.1 pg (26.0-34.0); MCHC 34.9 g/dL (31.0-37.0); MEAN PLATELET VOLUME 11.4 fL (7.4-10.4); MONOCYTES 6.4 % (2-11); NEUTROPHILS 67.4 % (40-80); PLATELET COUNT 239 10x3/uL (130-400); RBC 4.49 10x6/uL (4.20-6.10); RDW 15.4 % (11.5-14.5); WBC 10.4 10x3/uL (4.8-10.8)
[2018-06-27 12:46] LABS: ANION GAP 11.4 mmol/L (8-16); CALCIUM 9.5 mg/dL (8.5-10.1); CARBON DIOXIDE 29.5 mmol/L (21.0-32.0); CREATININE - SERUM 1.5 mg/dL (0.6-1.3); POTASSIUM - SERUM 3.9 mmol/L (3.5-5.1)
== END | disposition home or self-care (01) ==
LOC: D.CATH 12:09
PROVIDERS: Orthopaedic Surgery
DX: I25.110 Atherosclerotic heart disease of native coronary artery with unstable angina pectoris (principal); I20.9 Angina pectoris, unspecified

== ENCOUNTER 2018-09-18 12:41 | Outpatient (CLI) | payer MEDICAID ==
[2018-06-27 12:34] VITALS: BMI 19.7
== END 2018-09-18 23:59 ==
LOC: D.HCCARDIO 12:41
DX: R07.89 Other chest pain (principal)

== ENCOUNTER 2018-11-20 16:48 | Emergency (ER) | payer MEDICAID ==
[~2018-11-20] VITALS: Ht 182.9 cm; Wt 68.2 kg
[2018-11-20 16:57] VITALS: Ht 182.9 cm; Wt 68.2 kg
[2018-11-20 17:26] LABS: BASOPHILS 0.2 % (0-2); EOSINOPHILS 0.9 % (0-7); HEMATOCRIT 43.6 % (42.0-54.0); HEMOGLOBIN 15.1 g/dL (13.5-17.5); IMMATURE GRANULOCYTES 0.6 % (0-5); LYMPHOCYTES 17.6 % (15-50); MCH 31.9 pg (26.0-34.0); MCHC 34.6 g/dL (31.0-37.0); MCV 92.2 fL (80.0-100.0); MONOCYTES 6.3 % (2-11); NEUTROPHILS 74.4 % (40-80); PLATELET COUNT 286 10x3/uL (130-400); RBC 4.73 10x6/uL (4.20-6.10); RDW 14.3 % (11.5-14.5); WBC 12.3 10x3/uL (4.8-10.8)
[2018-11-20 17:55] LABS: ALBUMIN 4.3 g/dL (3.4-5.0); ALKALINE PHOSPHATASE 147 U/L (46-116); ALT (SGPT) 110 U/L (10-68); BILIRUBIN - TOTAL 0.55 mg/dL (0.2-1.3); CALC OSMOLALITY 262 mosm/kg (275-300); CALCIUM 9.6 mg/dL (8.5-10.1); CARBON DIOXIDE 27.1 mmol/L (21.0-32.0); CHLORIDE - SERUM 94 mmol/L (98-107); CREATININE - SERUM 1.9 mg/dL (0.6-1.3); POTASSIUM - SERUM 4.6 mmol/L (3.5-5.1); PROTEIN - SERUM 8.4 g/dL (6.4-8.2); SODIUM 130 mmol/L (136-145); UREA NITROGEN 12 mg/dL (7-18); eGFR NON AFRICAN AMERICAN 40 mL/min (90-120)
[2018-11-20 17:56] LABS: GLUCOSE 133 mg/dL (74-106)
[2018-11-20 18:06] LABS: CKMB 2.2 U/L (0.0-3.6); CREATINE KINASE 119 UL (21-232); PRO BNP 323 pg/mL (0-125)
[2018-11-20 18:20] LABS: TROPONIN-I < 0.017 ng/mL (0.000-0.060)
[2018-11-20 21:28] VITALS: BP 152/105
== END 2018-11-20 21:29 | disposition left against medical advice (07) ==
LOC: D.ER 16:48
PROVIDERS: Emergency Medicine
DX: R07.9 Chest pain, unspecified (principal); R10.9 Unspecified abdominal pain

== ENCOUNTER 2018-11-29 14:30 | Emergency (ER) | payer MEDICAID ==
[~2018-11-29] VITALS: Ht 182.9 cm; Wt 63.6 kg
[2018-11-29 14:32] VITALS: Ht 182.9 cm; Wt 63.6 kg
[2018-11-29] MEDS ORDERED: ATIVAN1 MG PO (14:35)
[2018-11-29 15:02] LABS: BASOPHILS 0.4 % (0-2); EOSINOPHILS 1.3 % (0-7); HEMATOCRIT 38.7 % (42.0-54.0); HEMOGLOBIN 13.7 g/dL (13.5-17.5); IMMATURE GRANULOCYTES 0.7 % (0-5); LYMPHOCYTES 33.5 % (15-50); MCH 32.1 pg (26.0-34.0); MCHC 35.4 g/dL (31.0-37.0); MCV 90.6 fL (80.0-100.0); MEAN PLATELET VOLUME 10.5 fL (7.4-10.4); MONOCYTES 7.1 % (2-11); PLATELET COUNT 291 10x3/uL (130-400); RBC 4.27 10x6/uL (4.20-6.10); RDW 14.8 % (11.5-14.5)
[2018-11-29 15:29] LABS: ALBUMIN 3.7 g/dL (3.4-5.0); ALKALINE PHOSPHATASE 110 U/L (46-116); ALT (SGPT) 47 U/L (10-68); BILIRUBIN - TOTAL 0.65 mg/dL (0.2-1.3); CALC OSMOLALITY 268 mosm/kg (275-300); CALCIUM 8.9 mg/dL (8.5-10.1); CARBON DIOXIDE 28.2 mmol/L (21.0-32.0); CHLORIDE - SERUM 98 mmol/L (98-107); CREATININE - SERUM 1.6 mg/dL (0.6-1.3); POTASSIUM - SERUM 3.7 mmol/L (3.5-5.1); PROTEIN - SERUM 7.1 g/dL (6.4-8.2); SODIUM 135 mmol/L (136-145); UREA NITROGEN 12 mg/dL (7-18); eGFR NON AFRICAN AMERICAN 49 mL/min (90-120)
[2018-11-29 15:36] LABS: GLUCOSE 73 mg/dL (74-106)
[2018-11-29 15:42] LABS: CKMB 0.8 U/L (0.0-3.6); CREATINE KINASE 72 UL (21-232); TROPONIN-I < 0.017 ng/mL (0.000-0.060)
[2018-11-29] MEDS ORDERED: MIRALAX17 GM PO (18:27)
[2018-11-29] MEDS ORDERED: HYDROCODON-ACE1 EA10 PO (18:27)
[2018-11-29 19:00] VITALS: BP 144/98
== END 2018-11-29 19:01 | disposition home or self-care (01) ==
LOC: D.ER 14:30
PROVIDERS: Family Medicine
DX: K59.00 Constipation, unspecified (principal); N28.1 Cyst of kidney, acquired

== ENCOUNTER 2018-11-30 10:00 | Outpatient (CLI) | payer MEDICAID ==
[~2018-11-30] VITALS: Ht 182.9 cm; Wt 65.8 kg
[~2018-11-30 10:00] MED LIST changes: +HYDROCODON-ACE1 EA10 PO; +MIRALAX17 GM PO
[2018-11-30 10:33] LABS: BASOPHILS 0.2 % (0-2); EOSINOPHILS 1.8 % (0-7); HEMATOCRIT 37.9 % (42.0-54.0); HEMOGLOBIN 13.1 g/dL (13.5-17.5); IMMATURE GRANULOCYTES 0.9 % (0-5); LYMPHOCYTES 16.7 % (15-50); MCH 31.7 pg (26.0-34.0); MCHC 34.6 g/dL (31.0-37.0); MCV 91.8 fL (80.0-100.0); MEAN PLATELET VOLUME 10.5 fL (7.4-10.4); NEUTROPHILS 73.4 % (40-80); PLATELET COUNT 276 10x3/uL (130-400); RBC 4.13 10x6/uL (4.20-6.10); RDW 15.1 % (11.5-14.5)
[2018-11-30 10:44] LABS: APTT 29.1 SECONDS (22.8-39.4); INR 0.86 (0.85-1.17); PROTIME 11.3 SECONDS (11.6-15.0)
[2018-11-30 10:46] LABS: ANION GAP 13.6 mmol/L (8-16); CALCIUM 9.1 mg/dL (8.5-10.1); CARBON DIOXIDE 26.9 mmol/L (21.0-32.0); CREATININE - SERUM 1.6 mg/dL (0.6-1.3)
[2018-11-30 10:47] LABS: POTASSIUM - SERUM 4.5 mmol/L (3.5-5.1)
[2018-11-30 11:37] VITALS: BP 182/113; Ht 182.9 cm; Wt 65.8 kg
--- NOTE | 2018-11-30 13:50 | NUR ---
REC'D FROM SPECIALS. DRESSING CDI TO LOWER BACK. FAMILY/FRIENDS AT BEDSIDE. COLA AND FL TRAY BROUGHT TO PT.
--- NOTE | 2018-11-30 14:20 | NUR ---
TOLERATED DIET. DRESSING CDI TO BACK WITH SOME EDEMA NOTED. ICE PACK GIVEN TO PATIENT TO APPLY AT AREA. PT WANTING SOME PAIN MEDICATION. EXPLAINED THE IR PHYSICIANS IN MOST CASES DO NOT WRITE RX. PT STARTED TALKING ABOUT LEAVING THAT HE COULD NOT JUST LAY THERE. EXPLAINED IF HE DID THIS IT WOULD BE AMA. PT RELATED HE DIDN'T CARE THAT IT WOULDN'T BE THE FIRST TIME. THEN EXPLAINED TO PT HIS INSURANCE COULD OPT TO NOT PAY. PT RELATES HE DIDN'T CARE.
--- NOTE | 2018-11-30 14:55 | NUR ---
ATTEMPTED TO CONTACT Darwin MARINO RN THE IR NURSE AND SHE WAS IN A MEETING.
--- NOTE | 2018-11-30 15:05 | NUR ---
ATTEMPTED TO CALL DALE WILSON RN REGARDING WHEN PT COULD LEAVE AND CHECK ON SOMETHING FOR PAIN. DALE RETURNED CALL AND RELATED HE WAS NOT WORKING TODAY AND GAVE ME [facility]S NUMBER. WAS CALLING [facility] WHEN GOT A MESSAGE THAT ANNE-MARIE FROM [facility] WAS ON THE LINE FOR ME. ANNE-MARIE RELATED PER THEIR GUIDELINES PT IS TO STAY 4 HOURS HOWEVER TO CHECK WITH [facility] SINCE THEY ADMINISTERED THE MEDS AND IF APPROVED BY THEM PATIENT COULD BE DC'D. CALLED [facility] AND SPOKE WITH VERONICA PENA CRNA AND EXPLAINED THAT IR SAID THEY COULD MAKE THE DECISION WHETHER TO KEEP PATIENT 4 HOURS OR IF HE WAS STABLE TO GO. ALSO EXPLAINED TO [facility] THE PATIENT RELATES HE IS NOT STAYING 4 HOURS.[facility] RELATES IT IS OD FOR DC WHEN [facility]ITER[facility] IS MET.
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
--- NOTE | 2018-11-30 15:50 | NUR ---
DC'D HOME WITH FRIEND VIA PRIVATE VEHICLE. TAKEN TO VEHICLE VIA WC. STABLE AT TIME OF DC.
== END 2018-11-30 15:50 | disposition home or self-care (01) ==
LOC: D.SP 10:00 → D.CT 12:00 → D.SP 15:50
PROVIDERS: ATTEND Specialist
DX: N28.1 Cyst of kidney, acquired (principal); Z01.812 Encounter for preprocedural laboratory examination

== ENCOUNTER 2018-12-22 09:41 | Emergency (ER) | payer MEDICAID ==
[~2018-12-22] VITALS: Ht 182.9 cm; Wt 65.9 kg
[2018-12-22 09:44] VITALS: BP 192/121; Ht 182.9 cm; Wt 65.9 kg
== END 2018-12-22 12:10 | disposition home or self-care (01) ==
LOC: D.ER 09:41
DX: I10 Essential (primary) hypertension (principal); Z87.898 Personal history of other specified conditions; Z76.5 Malingerer [conscious simulation]

== ENCOUNTER 2019-01-22 10:08 | Outpatient (CLI) | payer MEDICAID ==
[~2019-01-22] VITALS: Ht 182.9 cm; Wt 65.9 kg
--- NOTE | ~2019-01-22 | HEMODYNAMI ---
PATIENT:DILLON LOPEZ MEDICAL RECORD: [id number] : 68 LOCATION:[facility] ADMISSION DATE: 01/22/19 Generatedon:01/22/201913:00 Patient name: DILLON LOPEZ Patient #: [id number] SSN: : 1970 Date of study: 01/22/2019 Page: Of Hemodynamic Procedure Report Patient Data Patient Demographics Procedure consent was obtained First Name: DILLON Gender: Male Last Name: JESSICA : 1970 [facility] Initial: NILO Age: 49 year(s) Patient #: [id number] Race: Additional ID: [id number] Contact details Address: [employer] [address] State: [place] City: [place] Zip code: [address] Past Medical History Allergies Allergen Reaction Date Comments Reported Other allergy 12/21/2016 CLONIDINE Other allergy 06/27/2018 Benadryl, Clonidine Admission Admission Data Admission Date: 01/22/2019 Admission Time: 10:08 Procedure Procedure Types Cath Procedure Diagnostic Procedure [facility] w/Coronaries PCI Procedure Coronary Stent Coronary Stent Initial x2 Procedure Description Procedure Date Procedure Date: 01/22/2019 Procedure Start Time: 12:38 Procedure End Time: 12:59 Procedure Staff Name Function Raad Polk MD Performing Physician Alton Bertrand RT Monitor Milan Canela RN Nurse Nereida Serrano RT Scrub Procedure Data Cath Procedure Fluoroscopy Diagnostic fluoroscopy Total fluoroscopy Time: 3.2 time: 3.2 min min Diagnostic fluoroscopy Total fluoroscopy dose: 105 dose: 105 mGy mGy Contrast Material Contrast Material Type Amount (ml) Isovue 300 95 Entry Location Entry Primary Successful Side Size Upsize Upsize Entry Closure [place] ccessful Closure Location (Fr) 1 (Fr) 2 (Fr) Remarks Device Remarks Radial Right 6 Fr Mechanical artery Short Compression Estimated blood loss: 10 ml Diagnostic catheters Device Type Used For End Catheter Placement DIAGNOSTIC [place] 110cm 5 Procedure Fr catheter ([id number]) Procedure Complications No complications Procedure Medications Medication Administration Route Dosage Oxygen etCO2 Nasal cannula 2 l/min Heparin Flush Bag added to field 2 bags (1000units/500ml NS) 0.9% NaCl I.V. 100 ml/hr Lidocaine 2% added to field 20 Radial Cocktail added to field 1 syringe (Verapomil 2mg/Nitro 400mcg/Heparin 1500units) Fentanyl I.V. 100 mcg Versed I.V. 2 mg Fentanyl I.V. 100 mcg Versed I.V. 2 mg Fentanyl I.V. 100 mcg Versed I.V. 2 mg Radial Cocktail I.A. 1 syringe (Verapomil 2mg/Nitro 400mcg/Heparin 1500units) Fentanyl I.V. 100 mcg Versed I.V. 2 mg Heparin Bolus I.V. 4000 units Integrilin (Bolus I.V. 6.2 ml 2mg/ml) Integrilin (Bolus wasted 3.8 ml 2mg/ml) Plavix P.O. 600 mg Hemodynamics Rest Heart Rate: 68 (bpm) Pressure Samples Time Site Value (mmHg) Purpose Heart Use Rate(bpm) 12:42 AO 98/82(87) Snapshot 65 Snapshots Pre Cath Intra NCS Post Cath Vital Signs Time Heart Resp SPO2 etCO2 NIBP (mmHg) Rhythm Pain Sedation Rate (ipm) (%) (mmHg) Status Level (bpm) 12:26:53 81 17 100 36.1 132/99(115) NSR 0 (11) 10(A) , No pain 12:30:54 71 17 100 28.6 134/94(117) NSR 0 (11) 10(A) , No pain 12:34:58 74 17 97 21 133/96(115) NSR 0 (11) 10(A) , No pain 12:39:06 64 17 94 0.7 117/74(88) NSR 0 (11) 10(A) , No pain 12:43:14 67 17 92 36.1 109/61(86) NSR 0 (11) 9(A) , No pain 12:47:13 70 16 93 36.1 115/76(111) NSR 0 (11) 9(A) , No pain 12:51:17 67 17 96 29.3 107/73(83) NSR 0 (11) 9(A) , No pain 12:54:50 68 17 97 39.9 103/71(88) NSR 0 (11) 10(A) , No pain 12:58:50 72 9 97 0 120/73(93) NSR 0 (11) 10(A) , No pain Medications Time Medication Route Dose Verified Delivered Reason Not es Effectiveness by by 12:35:36 Oxygen etCO2 2 l/min Raad Yates Per physician Nasal Felicitas Canela RN cannula 12:35:44 Heparin Flush added 2 bags Raad Meiery used for Bag to Felicitas Canela RN procedure (1000units/500ml field NS) 12:35:54 0.9% NaCl I.V. 100 Raad Milan Per physician ml/hr Felicitas Canela RN 12:36:09 Lidocaine 2% added 20ml Raad Meiery for local to vial Felicitas Canela RN anesthetic field 12:36:17 Radial Cocktail added 1 Raad Milan used for (Verapomil to syringe Felicitas Canela RN procedure 2mg/Nitro field 400mcg/Heparin 1500units) 12:36:24 Fentanyl I.V. 100 mcg Raad Milan for sedation Felicitas Canela RN 12:36:30 Versed I.V. 2 mg Raad Milan for sedation Felicitas Canela RN 12:39:02 Fentanyl I.V. 100 mcg Raad Milan for sedation Felicitas Canela RN 12:39:06 Versed I.V. 2 mg Raad Milan for sedation Felicitas Canela RN 12:41:12 Fentanyl I.V. 100 mcg Raad Milan for sedation Felicitas Canela RN 12:41:18 Versed I.V. 2 mg Raad Milan for sedation Felicitas Canela RN 12:42:10 Radial Cocktail I.A. 1 Raad Milan for (Verapomil syringe Felicitas Canela RN vasodilation 2mg/Nitro 400mcg/Heparin 1500units) 12:44:46 Fentanyl I.V. 100 mcg Raad Milan for sedation Felicitas Canela RN 12:44:51 Versed I.V. 2 mg Raad Milan for sedation Felicitas Canela RN 12:47:11 Heparin Bolus I.V. 4000 Raad Milan for units Felicitas Canela RN anticoagulation 12:47:49 Integrilin I.V. 6.2 ml Raad Milan Per physician (Bolus 2mg/ml) Felicitas Canela RN 12:47:57 Integrilin wasted 3.8 ml Raad Yates Per physician (Bolus 2mg/ml) Felicitas Canela RN 12:54:02 Plavix P.O. 600 mg Raad Yates for Felicitas Canela RN antiplatelet therapy Procedure Log Time Note 12:00:59 Milan Canela RN sent for patient. Start room use. 12:18:06 Time tracking: Regular hours (M-F 7:00 - 5:00) 12:18:10 Plan of Care:Hemodynamics will remain stable., Cardiac rhythm will remain stable., Comfort level will be maintained., Respiratory function will remain adequate., Patient/ family verbilizes understanding of procedure., Procedure tolerated without complication., Recovers from procedure without complications.. 12:25:30 Patient received from Pre/Post Procedure Room to CCL 3 Alert and oriented. Tansferred to table in Supine position. 12:29:32 Warm blankets applied, and abdoulaye hugger turned on for patient comfort. 12:29:32 Correct patient and procedure confirmed by team. 12:29:33 Signed procedure consent form obtained from patient. 12:29:34 ECG and BP/O2 sat monitors applied to patient. 12:29:38 Vital chart was started 12:29:52 Baseline sample Acquired. 12:29:56 Rhythm: sinus rhythm 12:29:57 Full Disclosure recording started 12:30:09 H&P Date Dictated: 01/18/2019 Within 30 days and on chart., H&P Addendum completed by physician on day of procedure. (MUST COMPLETE FOR ALL OUTPATIENTS). 12:30:10 Pre-procedure instructions explained to patient. 12:30:10 Pre-op teaching completed and patient verbalized understanding. 12:30:12 Family in patients room. 12:30:13 Patient NPO since Midnight. 12:30:14 Is the patient allergic to Iodine/contrast media? No. 12:30:16 Is patient on blood thinner?No 12:30:18 Patient diabetic? No. 12:30:21 Previous problem with sedation/anesthesia? No ? 12:30:22 Snore? Yes 12:30:24 Sleep apnea? No 12:30:25 Deviated septum? No 12:30:26 Opens mouth fully? Yes 12:30:26 Sticks out tongue? Yes 12:30:28 Airway obstruction? No ? 12:30:30 Dentures? No ? 12:30:32 Pre procedure: right dorsailis pedis pulse 1+ Palpable, but thready & weak; easily obliterated 12:30:34 Modified Nakul's test Ulnar < 7 seconds 12:30:37 Patient pain scale 0/10 ?. 12:30:42 IV patent on arrival in left forearm with 0.9% NaCl at KVO. 12:30:45 Lab results completed and on chart. 12:30:47 Right groin area was prepped with chlora-prep and draped in sterile fashion 12:30:48 Sharps counted by scrub and verified by R.N. 12:30:48 Alarms reviewed by R. N. 12:34:16 Physician paged 12:34:54 --------ALL STOP TIME OUT------ 12:34:55 Final Timeout: patient, procedure, and site verified with staff and physician. All members of the team are in agreement. 12:34:57 Right Radial & Right Groin site verified by team. 12:35:00 Maximum allowable Isovue 300 dose 194ml. Physician notified. (300ml for normal creatinines. For patients with creatinine of 1.7 or higher multiply weight(kg) x 5 divided by creatinine.) 12:35:05 Fire Safety Assessment: A--An alcohol-based skin anteseptic being used preoperatively., C--Open oxygen or nitrous oxide is being used., D--An ESU, laser, or fiber-optic light is being used. 12:35:07 Physical assessment completed. ASA score P 2 - A patient with mild systemic disease as per Raad Polk MD. 12:35:10 Sedation plan: IV Moderate Sedation Medication:Versed, Fentanyl 12:35:36 Oxygen 2 l/min etCO2 Nasal cannula was administered by Milan Canela RN; Per physician; 12:35:44 Heparin Flush Bag (1000units/500ml NS) 2 bags added to field was administered by Milan Canela RN; used for procedure; 12:35:54 0.9% NaCl 100 ml/hr I.V. was administered by Milan Canela RN; Per physician; 12:36:09 Lidocaine 2% 20ml vial added to field was administered by Milan Canela RN; for local anesthetic; 12:36:17 Radial Cocktail (Verapomil 2mg/Nitro 400mcg/Heparin 1500units) 1 syringe added to field was administered by Milan Canela RN; used for procedure; 12:36:24 Fentanyl 100 mcg I.V. was administered by Milan Canela RN; for sedation; 12:36:30 Versed 2 mg I.V. was administered by Milan Canela RN; for sedation; 12:38:29 Use device set Radial Dx or PCI 12:38:31 Tegaderm 4 x 4 (1626W) opened to sterile field. 12:38:33 ACIST Hand Control (71119) opened to sterile field. 12:38:34 ACIST Manifold (40175) opened to sterile field. 12:38:35 ACIST Syringe (97396) opened to sterile field. 12:38:36 Medline Cath Pack ([id number]) opened to sterile field. 12:38:36 Bag Decanter (2002S) opened to sterile field. 12:38:37 DIAGNOSTIC WIRE .035 260cm J wire (132337) opened to sterile field. 12:38:37 MBrace Wrist Support ([id number]) opened to sterile field. 12:38:41 SHEATH 6FR Slender (82-7346) opened to sterile field. 12:38:53 Procedure started. 12:38:57 Local anesthetic to right radial artery with Lidocaine 2% by Raad Polk MD.INITIAL ACCESS ONLY 12:39:02 Fentanyl 100 mcg I.V. was administered by Milan Canela RN; for sedation; 12:39:06 Versed 2 mg I.V. was administered by Milan Canela RN; for sedation; 12:40:50 A 6 Fr Short sheath was inserted into the Right Radial artery 12:41:00 A DIAGNOSTIC [place] 110cm 5 Fr catheter ([id number]) was advanced over the wire and used for Procedure. 12:41:12 Fentanyl 100 mcg I.V. was administered by Milan Canela RN; for sedation; 12:41:18 Versed 2 mg I.V. was administered by Milan Canela RN; for sedation; 12:42:08 LV angiography performed. 12:42:09 LV gram done using RIVERA 12:42:10 Radial Cocktail (Verapomil 2mg/Nitro 400mcg/Heparin 1500units) 1 syringe I.A. was administered by Milan Canela RN; for vasodilation; 12:42:13 EF : 70 % 12:42:16 Injector settings: Ml/sec: 7, Volume: 15, 12:43:00 RCA angiography performed. 12:43:24 Catheter exchanged over wire. 12:43:54 Use device set TAU PCI 12:44:14 GUIDE 6FR XBLAD 3.5 catheter ([id number]) opened to sterile field. 12:44:23 6 Fr XBLAD 3.5 guide catheter was inserted over the wire 12:44:33 LCA angiography performed. 12:44:46 Fentanyl 100 mcg I.V. was administered by Milan Canela RN; for sedation; 12:44:51 Versed 2 mg I.V. was administered by Milan Canela RN; for sedation; 12:47:05 INFLATOR Merit BasixCompak (MS8106) opened to sterile field. 12:47:09 CHOICE PT Extra Support 182cm wire ([id number]) opened to sterile field. 12:47:11 Heparin Bolus 4000 units I.V. was administered by Milan Canela RN; for anticoagulation; 12:47:21 CPTXS wire advanced. 12:47:40 Place stent Inflation Number: 1 A INTEGRITY RX 3.0 x 12 stent ([id number]) was prepped and advanced across the Mid LAD. The stent was deployed at 13 MARIE for 0:10 (min:sec). 12:47:43 Stent catheter was removed intact over wire. 12:47:44 Wire removed. 12:47:44 Guide catheter removed. 12:47:49 Integrilin (Bolus 2mg/ml) 6.2 ml I.V. was administered by Milan Canela RN; Per physician; 12:47:57 Integrilin (Bolus 2mg/ml) 3.8 ml wasted was administered by Milan Canela RN; Per physician; 12:48:13 GUIDE 6FR AR 2.0 catheter ([id number]) opened to sterile field. 12:48:25 6 Fr AR 2 guide catheter was inserted over the wire 12:49:56 CPTXS wire advanced. 12:50:28 Wire advanced across lesion. 12:51:17 Place stent Inflation Number: 1 A INTEGRITY RX 3.0 x 18 stent ([id number]) was prepped and advanced across the Mid RCA. The stent was deployed at 15 MARIE for 0:10 (min:sec). 12:51:40 Stent catheter was removed intact over wire. 12:51:40 Wire removed. 12:51:41 Guide catheter removed. 12:51:49 TR BAND Standard ([id number]) opened to sterile field. 12:51:54 Procedure ended.(Physican Out) 12:53:47 Sheath removed intact; hemostasis achieved with Mechanical Compression to the Right Radial artery. 12:53:51 TR band inflated with 12cc of air. 12:53:58 Fluoroscopy time 03.20 minutes. 12:54:02 Plavix 600 mg P.O. was administered by Milan Canela RN; for antiplatelet therapy; 12:54:02 Fluoroscopy dose: 105 mGy 12:54:02 Flurop Dose total: 105 12:54:06 Contrast amount:Isovue 300 95ml. 12:54:07 Sharps counted by scrub and verified by R.N. 12:54:10 Insertion/operative site no bleeding no hematoma. 12:54:12 Post Procedure Pulses reassessed and unchanged 12:54:14 Post-procedure physical assessment completed. ASA score P 2 - A patient with mild systemic disease as per Raad Polk MD. 12:54:16 Post procedure rhythm: unchanged. 12:54:19 Estimated blood loss: 10 ml 12:54:20 Post procedure instruction explained to patient.Patient verbalizes understanding. 12:54:21 Patient needs reinforcement of post procedure teaching. 12:54:28 Procedure type changed to Cath procedure, Diagnostic procedure, LHC, LHC w/Coronaries, PCI procedure, Coronary Stent, Coronary Stent Initial x2 12:59:42 Procedure and supply charges have been captured, reviewed, submitted and are correct. 12:59:45 Procedure Complication : No complications 12:59:47 Vital chart was stopped 12:59:48 See physician's report for complete and final results. 12:59:50 Report given to Pre/Post Procedure Room. 12:59:53 Patient transfered to Pre/Post Procedure Room with Stretcher. 12:59:55 Procedure ended. 12:59:55 Full Disclosure recording stopped 12:59:59 End room use (Document Last) Intervention Summary Intervention Notes Time ActionType Lesion and Equipment Action# Pressure Duration Attributes Used 12:47:40 Place stent Mid LAD INTEGRITY RX 1 13 00:10 3.0 x 12 stent ([id number]) 12:51:17 Place stent Mid RCA INTEGRITY RX 1 15 00:10 3.0 x 18 stent ([id number]) Device Usage Item Name Manufacture Quantity Catalog Number Hospital Part Current Mini [facility] Lot# / Charge Number Stock Stock Serial# Code Tegaderm 4 x 3M 1 1626W [id number] 584108 683038 5 4 (1626W) ACIST Hand Acist 1 37917 634736 364813 591399 5 Control Medical (89185) Systems Inc ACIST Acist 1 60184 463500 335509 651703 5 Manifold Medical (42741) Systems Inc ACIST Acist 1 30669 873797 351774 155549 20 Syringe Medical (96531) Systems Inc Medline Cath Medline 1 [id number] 482522 63287 950955 5 Pack ([id number]) Bag Decanter Microtek 1 2001S 013437 58000 107434 5 (2001S) Medical Inc. DIAGNOSTIC [facility] [place] 1 774051 747542 295908 011558 30 WIRE .035 260cm J wire (378272) MBrace Wrist Advanced 1 140-0250-00 311484 16322 455741 5 Support Vascular (463669404) Dynamics SHEATH 6FR Terumo 1 [id number] 211732 971189 809507 5 Slender (80-1060) DIAGNOSTIC Terumo 1 40-5013 181756 289556 974655 5 [place] 110cm 5 Fr catheter (915138) GUIDE 6FR Cardinal 1 [id number] 963699 418375 675822 10 XBLAD 3.5 Health catheter (99243272) INFLATOR Merit 1 NY8176 085026 279043 072014 15 Ongage Medical BasixCompak (ND7588) CHOICE PT [place] 1 [id number] 174570 685645 301906 5 Extra Scientific Support 182cm wire ([id number]) INTEGRITY RX Medtronic 1 [id number] 948806 172592 642436 5 [id number] 3.0 x 12 stent ([id number]) GUIDE 6FR AR Medtronic 1 [id number] 903444 70963 872219 1 2.0 catheter (LL8BT44) INTEGRITY RX Medtronic 1 [id number] 797380 181422 154640 5 [id number] 3.0 x 18 stent ([id number]) TR BAND Terumo 1 [id number] 347739 380437 072257 40 Standard ([id number]) Signature Audit [place] Stage Time Signature Unsigned Intra-Procedure 01/22/2019 Alton Bertrand 1:00:12 PM RT(R) Signatures Monitor : Alton Bertrand RT Signature : Date : Time : [address] [address]
--- NOTE | ~2019-01-22 | OP ---
PATIENT NAME: DILLON LOPEZ MEDICAL RECORD: [id number] :68 LOCATION:D.CAT ADMISSION DATE: SURGEON: SHERIDAN GAITAN MD DATE OF OPERATION: 01/22/2019 PROCEDURES: 1. PTCA stent LAD. 2. PTCA stent RCA. 3. Left heart catheterization. 4. Selective coronary angiography. 5. Left ventriculogram. INDICATION: Angina and coronary artery disease. PROCEDURE IN DETAIL: After informed consent was obtained and after a detailed description of the risks, benefits as well as alternative therapies, the patient elected to proceed with angiogram and angioplasty. The right radial area was prepped and draped in normal sterile fashion. Right radial artery was cannulated via modified Seldinger technique with placement of 6-[place] sheath. All catheters exchanged through this sheath. FINDINGS: The left ventriculogram was performed in a standard 30-degree RIVERA view, reveals good cardiac wall motion throughout all segments. Overall ejection fraction at 70%. SELECTIVE CORONARY ANGIOGRAPHY: 1. Left main is with no significant angiographic disease. 2. Left anterior descending has previously placed stent that is widely patent. There is 80% stenosis after this in the proximal LAD. There is an LAD diagonal that has 90% stenosis at the ostium. 3. Left circumflex has moderate irregularities, but no flow-limiting stenosis. 4. Right coronary artery has 80% stenosis in mid vessel. PTCA STENT OF THE RCA: The stent used was a 3.0 x 18 mm Integrity. Result was 0% residual stenosis. PTCA STENT OF THE LAD: The stent used was a 3.0 x 12 mm Integrity. Result was 0% residual stenosis. OVERALL IMPRESSION: Successful PTCA stent of the LAD and RCA, both going from 80% initial stenosis to 0% residual. If chest pain persists, could consider PTCA stent of the LAD diagonal. TRANSINT:[id number] Voice Confirmation ID: [id number] DOCUMENT ID: [id number] SHERIDAN GAITAN MD CC: [id number] DICTATION DATE: 01/22/19 1255 MUTUEL TELLER: 01/22/19 1358 [facility] [address] [place] [address]
[2019-01-22 10:45] VITALS: BP 184/104; Ht 182.9 cm; Wt 65.9 kg
[2019-01-22 11:04] LABS: ANION GAP 12.7 mmol/L (8-16); CALCIUM 9.7 mg/dL (8.5-10.1); CREATININE - SERUM 1.7 mg/dL (0.6-1.3); POTASSIUM - SERUM 3.7 mmol/L (3.5-5.1)
[2019-01-22 11:47] LABS: BASOPHILS 0.1 % (0-2); EOSINOPHILS 0.4 % (0-7); HEMOGLOBIN 13.3 g/dL (13.5-17.5); IMMATURE GRANULOCYTES 0.7 % (0-5); LYMPHOCYTES 22.8 % (15-50); MCH 32.8 pg (26.0-34.0); MCV 93.6 fL (80.0-100.0); MEAN PLATELET VOLUME 10.6 fL (7.4-10.4); MONOCYTES 8.9 % (2-11); NEUTROPHILS 67.1 % (40-80); RBC 4.06 10x6/uL (4.20-6.10); RDW 15.5 % (11.5-14.5)
[2019-01-22 11:55] LABS: PLATELET COUNT 366 10x3/uL (130-400)
--- NOTE | 2019-01-22 13:10 | NUR ---
PT ARRIVED BY STRETCHER. PLACED ON MONITORS. ASSESSMENT COMPLETED. NO FAMILY IN WAITING ROOM AT THIS TIME.
[2019-01-22] MEDS ORDERED: BAYER CHEWABLE81 MG PO (13:16)
[2019-01-22] MEDS ORDERED: PLAVIX75 MG PO (13:16)
--- NOTE | 2019-01-22 13:26 | NUR ---
RIGHT RADIAL TR BAND IN PLACE. NO BLEEDING/HEMATOMA NOTED. PT SITTING UP. DENIES NAUSEA. SET UP WITH SANDWICH TRAY AND DRINK.
--- NOTE | 2019-01-22 13:58 | NUR ---
PT C/O SHOULDER PAIN. SORENESS. RATES IT A 6/10. WILL GIVE PAIN MEDICATION ORDERED.
--- NOTE | 2019-01-22 14:14 | NUR ---
PULLED NORCO 10MG. SCANNED PT AND OPENED MED. HE STATES HE COULDN'T TAKE A WHITE NORCO BECAUSE IT UPSETS HIS STOMACH. I WASTED NORCO IN SHARPS WITH LUIS ALBERTO MCGUIRE RN. THEN WENT BACK TO PT'S ROOM AND OFFERED HIM A WARM BLANKET FOR HIS SHOULDER. HE STATES THAT HE SLEEPS WITH A HEATING PAD ON HIS SHOULDER EVERY NIGHT AND IT DOESN'T HELP. HE THEN STATES "I GUESS I CAN TRY A HALF OF THAT PILL". I INFORMED HIM THAT I HAD TO WASTE THE MEDICATION. I WILL REORDER A NORCO 5 MG AND SEE IF PT WILL TAKE. HE STATES "I TAKE THE YELLOW NORCO". I CALLED PHARMACY AND THEY REPORT THEY HAVE NO SPECIAL COLORS FOR THE NORCO TABLETS.
--- NOTE | 2019-01-22 14:50 | NUR ---
PT REPORTS THAT PAIN HAS IMPROVED. RATES IT A 4/10 CURRENTLY. RESTING COMFORTABLY. VSS. RIGHT WRIST TR BAND IN PLACE. NO BLEEDING/HEMATOMA NOTED.
--- NOTE | 2019-01-22 15:21 | NUR ---
PT SITTING UP IN BED. FAMILY AT BEDSIDE. PT ATTEMPTED TO PUT ON SHIRT. HE ALSO ASKED TO HAVE IV OUT. PT INFORMED THAT WE HAD TO KEEP IV IN UNTIL CLOSER TO DISCHARGE. GAVE HIM A WARM BLANKET TO COVER CHEST. VSS. RIGHT RADIAL TR BAND IN PLACE. NO BLEEDING/HEMATOMA NOTED AT THIS TIME.
--- NOTE | 2019-01-22 16:05 | NUR ---
3cc OF AIR REMOVED FROM TR BAND. NO BLEEDING/HEMATOMA NOTED. FAMILY MEMBER IN THE STRETCHER LAYING NEXT TO PT. ASKED THAT SHE GET UP SO THAT WE WOULD BE ABLE TO GET TO PT NEEDED TO WEAN TR BAND. VSS AT THIS TIME.
--- NOTE | 2019-01-22 16:27 | NUR ---
3CC AIR REMOVED FROM TR BAND W/O BLEEDING OR SWELLING PER Bc. ERICA SANTANA. CALL LIGHT IN REACH, AT BEDSIDE. REPORT REC'D FROM Leonardo SANTANA RN TO ASSUME CARE.
--- NOTE | 2019-01-22 16:40 | NUR ---
PT'S REQUESTING TO TALK WITH DR GAITAN TO ANSWER QUESTIONS. HE WAS PAGED AND TALKED TO .
--- NOTE | 2019-01-22 16:50 | NUR ---
DISCHARGE INSTRUCTIONS COMPLETED W PT AND , BOTH VERBALIZED UNDERSTANDING. IV REMOVED W CATH INTACT, MONITORS REMOVED AND PT UP TO DRESS FOR DISCHARGE. 4 ADD'L CC AIR REMOVED FROM TR BAND, NO BLEEDING OR SWELLING NOTED.
--- NOTE | 2019-01-22 17:00 | NUR ---
REMAINING AIR AND TR BAND REMOVED W NO BLEEDING OR SWELLING NOTED. 2X2 AND TEGADERM DRESSING APPLIED. PT DISCHARGED TO PRIVATE VEHICLE WITH ALL BELONGINGS.
== END 2019-01-22 17:00 | disposition home or self-care (01) ==
LOC: D.CATH 10:08
PROVIDERS: ATTEND Internal Medicine Interventional Cardiology
DX: I25.110 Atherosclerotic heart disease of native coronary artery with unstable angina pectoris (principal)

== ENCOUNTER 2019-03-02 12:21 | Emergency (ER) | payer MEDICAID ==
[~2019-03-02] VITALS: Ht 182.9 cm; Wt 68.2 kg
[~2019-03-02 12:21] MED LIST changes: +BAYER CHEWABLE81 MG PO
[2019-03-02 12:58] VITALS: Ht 182.9 cm; Wt 68.2 kg
[2019-03-02 14:02] LABS: BASOPHILS 0.2 % (0-2); EOSINOPHILS 0.1 % (0-7); HEMATOCRIT 38.2 % (42.0-54.0); HEMOGLOBIN 13.3 g/dL (13.5-17.5); IMMATURE GRANULOCYTES 0.8 % (0-5); LYMPHOCYTES 5.3 % (15-50); MCH 33.3 pg (26.0-34.0); MCHC 34.8 g/dL (31.0-37.0); MCV 95.7 fL (80.0-100.0); MEAN PLATELET VOLUME 9.9 fL (7.4-10.4); MONOCYTES 3.5 % (2-11); NEUTROPHILS 90.1 % (40-80); PLATELET COUNT 322 10x3/uL (130-400); RBC 3.99 10x6/uL (4.20-6.10); RDW 15.4 % (11.5-14.5); WBC 12.8 10x3/uL (4.8-10.8)
[2019-03-02 14:11] LABS: ALBUMIN 4.1 g/dL (3.4-5.0); ALKALINE PHOSPHATASE 120 U/L (46-116); ALT (SGPT) 43 U/L (10-68); BILIRUBIN - TOTAL 0.52 mg/dL (0.2-1.3); CALC OSMOLALITY 277 mosm/kg (275-300); CALCIUM 9.6 mg/dL (8.5-10.1); CARBON DIOXIDE 29.7 mmol/L (21.0-32.0); CHLORIDE - SERUM 101 mmol/L (98-107); CREATININE - SERUM 1.1 mg/dL (0.6-1.3); GLUCOSE 88 mg/dL (74-106); POTASSIUM - SERUM 4.3 mmol/L (3.5-5.1); PROTEIN - SERUM 8.2 g/dL (6.4-8.2); SODIUM 139 mmol/L (136-145); UREA NITROGEN 16 mg/dL (7-18); eGFR NON AFRICAN AMERICAN 75 mL/min (90-120)
[2019-03-02 14:23] LABS: CKMB 1.7 U/L (0.0-3.6); CREATINE KINASE 89 UL (21-232); TROPONIN-I 0.019 ng/mL (0.000-0.060)
[2019-03-02 18:19] VITALS: BP 166/99
== END 2019-03-02 18:57 | disposition home or self-care (01) ==
LOC: D.ER 12:21
PROVIDERS: Family Medicine
DX: I10 Essential (primary) hypertension (principal); R07.89 Other chest pain; R07.81 Pleurodynia

== ENCOUNTER 2019-03-07 11:47 | Outpatient (CLI) | payer MEDICAID ==
[~2019-03-07] VITALS: Ht 182.9 cm; Wt 65.9 kg
--- NOTE | ~2019-03-07 | HEMODYNAMI ---
PATIENT:DILLON LOPEZ MEDICAL RECORD: [id number] : 68 LOCATION:[facility] ADMISSION DATE: 03/07/19 Generatedon:03/07/201915:03 Patient name: DILLON LOPEZ Patient #: [id number] SSN: : 1970 Date of study: 03/07/2019 Page: Of Hemodynamic Procedure Report Patient Data Patient Demographics Procedure consent was obtained First Name: DILLON Gender: Male Last Name: JESSICA : 1970 [facility] Initial: NILO Age: 49 year(s) Patient #: [id number] Race: Additional ID: [id number] Contact details Address: [address] State: [place] City: [place] Zip code: [address] Past Medical History Allergies Allergen Reaction Date Comments Reported Other allergy 12/21/2016 CLONIDINE Other allergy 06/27/2018 Benadryl, Clonidine Other allergy 03/07/2019 clonidine, benadryl Admission Admission Data Admission Date: 03/07/2019 Admission Time: 11:47 Admit Source: Other Height (in.): 72 BSA: 1.85 (m2) Height (cm.): 182.88 BMI: 19.39 (kg/m2) Weight (lbs.): 143 Weight (kg.): 64.86 Lab Results Lab Result Date: 03/07/2019 Lab Result Time: 0:00 CBC Name Units Result Min Max Hemoglobin g/dl 12.7 -*(----)-- 13.5 17.5 Procedure Procedure Types Cath Procedure Diagnostic Procedure [facility] Procedure Description Procedure Date Procedure Date: 03/07/2019 Procedure Start Time: 14:33 Procedure End Time: 15:02 Procedure Staff Name Function Jordon Rodriguez MD Performing Physician Renita Oconnell RN Shoe Planner Dagoberto Hernandez RT Monitor William Arzate RT Scrub Nahed Dahl RN Nurse Procedure Data Cath Procedure Fluoroscopy Diagnostic fluoroscopy Total fluoroscopy Time: 2.1 time: 2.1 min min Diagnostic fluoroscopy Total fluoroscopy dose: 450 dose: 450 mGy mGy Entry Location Entry Primary Successful Side Size Upsize Upsize Entry Closure Succes sful Closure Location (Fr) 1 (Fr) 2 (Fr) Remarks Device Remarks Femoral Right 5 Fr Exoseal artery Estimated blood loss: 10 ml Diagnostic catheters Device Type Used For End Catheter Placement MULTIPACK JL 4.0 5Fr Procedure catheter MULTIPACK 3DRC 5Fr Procedure catheter MULTIPACK Pigtail 5 Fr Procedure catheter Procedure Medications Medication Administration Route Dosage Oxygen etCO2 Nasal cannula 2 l/min Lidocaine 2% added to field 20 Heparin Flush Bag added to field 2 bags (1000units/500ml NS) 0.9% NaCl I.V. 100 ml/hr Versed I.V. 2 mg Fentanyl I.V. 100 mcg Versed I.V. 2 mg Fentanyl I.V. 100 mcg Versed I.V. 2 mg Radial Cocktail added to field 1 syringe (Verapamil 2mg/Nitro 400mcg/Heparin 1500units) Hemodynamics Rest BSA: 1.85 (m2) HGB: 12.7 (g/dl) O2 Consumption: Estimated: 237.03 (ml/min) O2 Co nsumption indexed: Estimated:128.12 (ml/min/m) Heart Rate: 93 (bpm) Pressure Samples Time Site Value (mmHg) Purpose Heart Use Rate(bpm) 14:44 LV 162/-2,10 Snapshot 77 14:45 LV 162/-3,9 EDP 84 14:45 AO 162/102(127) Pullback 72 14:45 LV 168/-4,10 Pullback 72 Gradients Valve Time Site 1 Site 2 Mean SEP/DFP Peak To Heart Use (mmHg) (sec/min) Peak Rate (mmHg) (bpm) Aortic 14:45 LV AO 27 7 6 72 168/-4,10 162/102(127) Calculations Valve P-P Mean Valve Index Valve Source Name Gradient Area Flow (cm2) Aortic 6 27 6 27 Snapshots Pre Cath Intra NCS Post Cath Vital Signs Time Heart Resp SPO2 etCO2 NIBP (mmHg) Rhythm Pain Sedation Rate (ipm) (%) (mmHg) Status Level (bpm) 14:17:47 90 22 100 21.6 165/130(153) NSR 0 (11) 10(A) , No pain 14:22:07 95 18 100 26.1 185/123(148) NSR 0 (11) 10(A) , No pain 14:26:31 94 16 98 31.3 172/116(139) NSR 0 (11) 10(A) , No pain 14:31:49 86 10 97 33.6 164/113(134) NSR 0 (11) 10(A) , No pain 14:36:07 86 15 95 40.3 165/107(142) NSR 0 (11) 10(A) , No pain 14:40:25 85 15 98 27.6 161/110(133) NSR 0 (11) 10(A) , No pain 14:44:39 84 15 98 27.6 168/103(131) NSR 0 (11) 9(A) , No pain 14:48:57 83 14 98 39.6 159/102(122) NSR 0 (11) 10(A) , No pain 14:53:11 84 9 98 30.6 142/108(124) NSR 0 (11) 10(A) , No pain 14:57:19 0 159/108(132) NSR 0 (11) 10(A) , No pain 15:01:18 0 No Cuff NSR 0 (11) 10(A) , No pain Medications Time Medication Route Dose Verified Delivered Reason Notes Effectiveness by by 14:26:02 Oxygen etCO2 2 l/min Jordon Buffie used for Nasal Michael Dahl RN procedure cannula 14:26:10 Lidocaine 2% added 20ml Jordon Jordon for local to vial Michael Rodriguez MD anesthetic field 14:26:19 Heparin Flush added 2 bags Jordon Jrodon used for Bag to Michael Rodriguez MD procedure (1000units/500ml field NS) 14:26:28 0.9% NaCl I.V. 100 Jordon Buffie Per ml/hr Michael Dahl RN physician 14:27:17 Radial Cocktail added 1 Jordon Buffie for not (Verapamil to syringe Michael Dahl RN vasodilation used. 2mg/Nitro field femoral 400mcg/Heparin access 1500units) 14:30:45 Versed I.V. 2 mg Jordon Buffie for sedation Michael Dahl RN 14:30:53 Fentanyl I.V. 100 mcg Jordon Buffie for sedation Michael Dahl RN 14:38:59 Versed I.V. 2 mg Jordon Buffie for sedation Michael Dahl RN 14:39:03 Fentanyl I.V. 100 mcg Jordon Dockery for sedation Michael Dahl RN 14:43:55 Versed I.V. 2 mg Jordon Dockery for sedation Michael Dahl RN Procedure Log Time Note 14:02:13 Informed consent obtained and on chart 14:02:21 Admit Source: Other 14:03:09 Diagnostic Cath status Elective 14:03:13 Renita Oconnell RN sent for patient. Start room use. 14:03:17 Time tracking: Regular hours (M-F 7:00 - 5:00) 14:03:24 Plan of Care:Hemodynamics will remain stable., Cardiac rhythm will remain stable., Comfort level will be maintained., Respiratory function will remain adequate., Patient/ family verbilizes understanding of procedure., Procedure tolerated without complication., Recovers from procedure without complications.. 14:03:37 H&P Date Dictated: 03/07/2019 Within 30 days and on chart.. 14:04:16 Patient allergic to Other allergyclonidine, benadryl 14:04:53 Patient Weight : 143 lbs 14:05:17 Patient Height : 72 inches 14:05:42 Patient received from Pre/Post Procedure Room to CCL 2 Alert and oriented. Tansferred to table in Supine position. 14:05:44 Warm blankets applied, and abdoulaye hugger turned on for patient comfort. 14:05:46 Correct patient and procedure confirmed by team. 14:15:17 ECG and BP/O2 sat monitors applied to patient. 14:15:19 Vital chart was started 14:17:37 Baseline sample Acquired. 14:17:45 Rhythm: sinus rhythm 14:17:47 Full Disclosure recording started 14:17:51 Pre-procedure instructions explained to patient. 14:17:53 Pre-op teaching completed and patient verbalized understanding. 14:17:56 Family in patients room. 14:18:00 Patient NPO since Midnight. 14:18:06 Is the patient allergic to Iodine/contrast media? No. 14:18:10 Is patient on blood thinner?No 14:18:56 Previous problem with sedation/anesthesia? No ? 14:19:08 Snore? Yes 14:19:10 Sleep apnea? No 14:19:13 Deviated septum? No 14:19:15 Opens mouth fully? Yes 14:19:17 Sticks out tongue? Yes 14:19:23 Airway obstruction? Yes ? 14:19:29 Dentures? No ? 14:20:09 Pre procedure: right dorsailis pedis pulse 1+ Palpable, but thready & weak; easily obliterated 14:20:19 Modified Nakul's test Radial < 7 seconds 14:20:30 IV patent on arrival in left hand with 0.9% NaCl at 100ml/hr. 14:: Lab Result : Hemoglobin 12.7 g/dl 14:: Lab results completed and on chart. 14:26:02 Oxygen 2 l/min etCO2 Nasal cannula was administered by Nahed Dahl RN; used for procedure; 14::07 Right Radial & Right Groin area was prepped with chlora-prep and draped in sterile fashion 14:: Alarms reviewed by R. N. 14:26:10 Lidocaine 2% 20ml vial added to field was administered by Jordon Rodriguez MD; for local anesthetic; 14:: Sharps counted by scrub and verified by R.N. 14:26:19 Heparin Flush Bag (1000units/500ml NS) 2 bags added to field was administered by Jordon Rodriguez MD; used for procedure; 14::28 0.9% NaCl 100 ml/hr I.V. was administered by Nahed Dahl RN; Per physician; 14:27:17 Radial Cocktail (Verapamil 2mg/Nitro 400mcg/Heparin 1500units) 1 syringe added to field was administered by Nahed Dahl RN; for vasodilation; not used. femoral access 14:: Physician arrived 14::44 --------ALL STOP TIME OUT------ 14:44 Final Timeout: patient, procedure, and site verified with staff and physician. All members of the team are in agreement. 14:27:50 Right Radial & Right Groin site verified by team. 14::59 Maximum allowable Isovue 300 dose 300ml. Physician notified. (300ml for normal creatinines. For patients with creatinine of 1.7 or higher multiply weight(kg) x 5 divided by creatinine.) 14:28:04 Fire Safety Assessment: A--An alcohol-based skin anteseptic being used preoperatively., C--Open oxygen or nitrous oxide is being used., D--An ESU, laser, or fiber-optic light is being used. 14:28:22 Physical assessment completed. ASA score P 2 - A patient with mild systemic disease as per Jordon Rodriguez MD. 14:28:27 Sedation plan: IV Moderate Sedation Medication:Versed, Fentanyl 14:30:45 Versed 2 mg I.V. was administered by Nahed Dahl RN; for sedation; 14:30:53 Fentanyl 100 mcg I.V. was administered by Nahed Dahl RN; for sedation; 14:32:17 Zero performed for pressure channel P1 14:32:28 Zero performed for pressure channel P1 14:33:16 Use device set Radial Dx or PCI 14:33:18 ACIST Syringe (26808) opened to sterile field. 14:33:19 Medline Cath Pack ([id number]) opened to sterile field. 14:33:20 Bag Decanter (2002S) opened to sterile field. 14:33:21 DIAGNOSTIC WIRE .035 260cm J wire (896817) opened to sterile field. 14:33:21 ACIST Hand Control (79314) opened to sterile field. 14:33:22 ACIST Manifold (96399) opened to sterile field. 14:33:22 Tegaderm 4 x 4 (1626W) opened to sterile field. 14:33:23 MBrace Wrist Support ([id number]) opened to sterile field. 14:33:25 NEEDLE Cook 21G 4cm Radial (Q61350) opened to sterile field. 14:33:29 SHEATH 6FR Slender (27-1060) opened to sterile field. 14:33:36 Procedure started. 14:33:46 Local anesthetic to right radial artery with Lidocaine 2% by Jordon Rodriguez MD.INITIAL ACCESS ONLY 14:36:44 UNABLE TO GAIN RADIAL ACCESS. 14:36:55 SHEATH 5FR [place] (UBB301) opened to sterile field. 14:37:22 Local anesthetic to right femoral artery with Lidocaine 2% by Jordon Rodriguez MD.ADDITIONAL ACCESS 14:38:21 A 5 Fr sheath was inserted into the Right Femoral artery 14:38:35 Use device set Multipack Set 14:38:40 DIAGNOSTIC Multipack 5Fr catheter set ([id number]) opened to sterile field. 14:38:59 Versed 2 mg I.V. was administered by Nahed Dahl RN; for sedation; 14:39:03 Fentanyl 100 mcg I.V. was administered by Nahed Dahl RN; for sedation; 14:39:13 A MULTIPACK JL 4.0 5Fr catheter was advanced over the wire and used for Procedure. 14:39:57 LCA angiography performed. 14:41:22 Catheter removed. 14:42:25 A MULTIPACK 3DRC 5Fr catheter was advanced over the wire and used for Procedure. 14:42:59 RCA angiography performed. 14:43:16 Catheter removed. 14:43:55 Versed 2 mg I.V. was administered by Nahed Dahl RN; for sedation; 14:44:09 A MULTIPACK Pigtail 5 Fr catheter was advanced over the wire and used for Procedure. 14:45:12 LV hemodynamics recorded. 14:45:14 LV gram done using RIVERA 14:45:23 EF : 60 % 14:46:25 Abdominal Aortagram was performed. 14:51:01 Catheter removed. 14:51:32 EXOSEAL 5Fr (EX500) opened to sterile field. 14:52:16 Sheath removed intact; hemostasis achieved with Exoseal to the Right Femoral artery. 14:52:29 Procedure ended.(Physican Out) 14:52:37 Fluoroscopy time 02.10 minutes. 14:52:48 Fluoroscopy dose: 450 mGy 14:52:48 Flurop Dose total: 450 14:57:04 Insertion/operative site no bleeding no hematoma. 14:57:08 Post-op/insertion site Right Femoral artery dressed using a 4 x 4 and Tegaderm. 14:57:22 Post right femoral artery:stable 14:57:32 Femstop placed over the right femoral artery at 53 mmHg. Hemostasis achieved. 14:58:15 FEMOSTOP PLACED FOR CAUTION PATIENT CONTINUES TO LIFT HEAD. 14:58:19 Post Procedure Pulses reassessed and unchanged 14:58:30 Post-procedure physical assessment completed. ASA score P 2 - A patient with mild systemic disease as per Jordon Rodriguez MD. 14:58:36 Post procedure rhythm: unchanged. 14:58:39 Estimated blood loss: 10 ml 14:58:45 Post procedure instruction explained to patient.Patient verbalizes understanding. 14:58:46 Patient needs reinforcement of post procedure teaching. 15:02:10 Procedure and supply charges have been captured, reviewed, submitted and are correct. 15:02:12 Vital chart was stopped 15:02:16 See physician's report for complete and final results. 15:02:19 Report given to Pre/Post Procedure Room. 15:02:23 Patient transfered to Pre/Post Procedure Room with Stretcher. 15:02:26 Procedure ended. 15:02:26 Full Disclosure recording stopped 15:02:30 End room use (Document Last) Device Usage Item Name Manufacture Quantity Catalog Hospital Part Current Minimal Lot# / Number Charge Number Stock Stock Serial# Code ACIST Acist 1 61862 628861 956124 575206 20 Syringe Medical (43904) Systems Inc Medline Medline 1 [id number] 680509 51079 721794 5 Cath Pack ([id number]) Bag Microtek 1 2001S 899822 22487 715397 5 Decanter Medical Inc. () DIAGNOSTIC St Shankar 1 194852 834851 933445 879873 30 WIRE .035 260cm J wire (136585) ACIST Hand Acist 1 59316 556325 974373 954995 5 Control Medical (42306) Systems Inc ACIST Acist 1 66084 759076 158063 344115 5 Manifold Medical (73266) Systems Inc Tegaderm 4 3M 1 1626W 040046 729087 770478 5 x 4 (1626W) MBrace Advanced 1 140-0250-00 158582 76277 662596 5 Wrist Vascular Support Dynamics ([id number]) NEEDLE Edtrips Medical 1 [id number] 711523 496510 609081 5 21G 4cm Radial (X43040) SHEATH 6FR Terumo 1 [id number] 050203 518416 588982 5 Slender (80-1060) SHEATH 5FR Terumo 1 [id number] 551522 249377 586217 5 [place] (WRY939) DIAGNOSTIC Cardinal 1 VC3430 819845 46414 740961 30 Multipack Health 5Fr catheter set (LY3541) MULTIPACK Cardinal 1 883381 5 JL 4.0 5Fr Health catheter MULTIPACK Cardinal 1 750185 5 3DRC 5Fr Health catheter MULTIPACK Cardinal 1 777786 5 Pigtail 5 Health Fr catheter EXOSEAL 5Fr Cardinal 1 EX500 733971 699088 301003 10 (EX500) Health Signature Audit [place] Stage Time Signature Unsigned Intra-Procedure 03/07/2019 Dagoberto Hernandez 3:03:17 PM RT(R) (CV) Signatures Monitor : Dagoberto Hernandez RT Signature : Date : Time : [address] [place] [address]
[2019-03-07 13:45] VITALS: BP 179/107; Ht 182.9 cm; Wt 65.9 kg
[2019-03-07 13:59] LABS: BASOPHILS 0 % (0-2); EOSINOPHILS 0.1 % (0-7); HEMATOCRIT 35.8 % (42.0-54.0); HEMOGLOBIN 12.7 g/dL (13.5-17.5); IMMATURE GRANULOCYTES 0.6 % (0-5); LYMPHOCYTES 7.2 % (15-50); MCH 32.9 pg (26.0-34.0); MCHC 35.5 g/dL (31.0-37.0); MCV 92.7 fL (80.0-100.0); MEAN PLATELET VOLUME 9.6 fL (7.4-10.4); MONOCYTES 5.9 % (2-11); NEUTROPHILS 86.2 % (40-80); PLATELET COUNT 381 10x3/uL (130-400); RBC 3.86 10x6/uL (4.20-6.10); RDW 14.5 % (11.5-14.5); WBC 13.4 10x3/uL (4.8-10.8)
[2019-03-07 14:28] LABS: ANION GAP 13.5 mmol/L (8-16); CALCIUM 9.5 mg/dL (8.5-10.1); CARBON DIOXIDE 26.7 mmol/L (21.0-32.0); CREATININE - SERUM 1.5 mg/dL (0.6-1.3); POTASSIUM - SERUM 4.2 mmol/L (3.5-5.1)
--- NOTE | 2019-03-07 15:15 | NUR ---
RECIEVED TO ROOM VIA STRETCHER FROM INSPECTOR SET UP AND LAY OUT WITH 5 FR EXOSEAL TO R/GROIN WITH FEMSTOP IN PLACE. NO PRESSURE TO FEMSTOP USED PRECAUTION DUE TO PATIENT MOVING ABOUT IN BED. INSTRUCTED PATIENT TO KEEP HEAD FLAT ON PILLOW WITH RLE STRAIGHT BUT PATIENT IS NONCOMPLIANT.
--- NOTE | 2019-03-07 15:24 | NUR ---
FEMSTOP REMAINS TO R/GROIN WITH NO BLEEDING NOTED VSS AND CHEST PAIN IS DENIED. INSTRUCTED PATIENT TO KEEP HEAD FLAT ON PILLOW WITH RLE STRAIGHT
--- NOTE | 2019-03-07 16:06 | NUR ---
PRESSURE TO FEMSTOP RELEASED WITH NO BLEEDING OR HEMATOMA. DRESSING APPLIED AND PATIENT REPOSITIONED TO [facility] UP 30 FOR COMFORT. CHEST PAIN IS DENIED AND VSS
[2019-03-07] MEDS ORDERED: LISINOPRIL2.5 MG PO (16:23)
[2019-03-07] MEDS ORDERED: ARMOUR THYROID30 MG PO (16:25)
[2019-03-07] MEDS ORDERED: CARAFATE1 G PO (16:25)
[2019-03-07] MEDS ORDERED: NITROQUICK0.4 MG SL (16:26)
[2019-03-07] MEDS ORDERED: HYDROCODON-ACE1 EA10 PO (16:29)
[2019-03-07] MEDS ORDERED: ATIVAN1 MG PO (16:30)
--- NOTE | 2019-03-07 16:51 | NUR ---
VERBAL AND WRITTEN DISCHARGE GONE OVER WITH PATIENT AND BOTH VERBALIZED UNDERSTANDING. CHEST PAIN IS DENIED AND 5 FR EXOSEAL R/GROIN IS CDI
== END 2019-03-07 16:52 | disposition home or self-care (01) ==
LOC: D.CATH 11:47
PROVIDERS: ATTEND Internal Medicine Cardiovascular Disease
DX: I25.110 Atherosclerotic heart disease of native coronary artery with unstable angina pectoris (principal); I10 Essential (primary) hypertension; Z01.812 Encounter for preprocedural laboratory examination